=== PATIENT | male | born 1990 | race Caucasian/White ===

== ENCOUNTER 2023-11-23 08:44 | Observation (INO) | payer OTHER, SELFPAY ==
[2023-11-23] VITALS (21 sets, daily range): BP systolic 94–126; BP diastolic 58–85; PULSE 63–90; RESP 14–18; TEMP 35.8–36.9; O2SAT 95–100; BMI 31.8; BMI 83.5
--- NOTE | ~2023-11-23 | CT_ITS ---
CT of the Abdomen and Pelvis: Indication: Nausea and vomiting, history of Crohn's disease and ileostomy Technique: 2.5 mm axial scans were obtained through the abdomen and pelvis following intravenous adm inistration of 100 cc of Omnipaque 350. Dose reduction technique was used on this scan by utilizing a utomated exposure control and iterative reconstruction technique. The dose-length product (DLP) was 4 01.98 mGy-cm. Findings: Scans through the lung bases are unremarkable. The liver, spleen, pancreas, gallbladder, adrenals and kidneys are within normal limits. No evidence of aortic aneurysm. No lymphadenopathy. Status post colectomy with ileostomy present. Several minimally distended bowel loops are present in the left upper quadrant. No high-grade bowel obstruction evident. Suspected wall thickening of proxim al jejunal/left upper quadrant small bowel are present. No abscess or free air evident. Images through the pelvis were performed. Urinary bladder unremarkable. No pelvic mass seen. No ascit es. Impression: Several mildly distended left upper quadrant small bowel loops. Correlate for partial small bowel obs truction. Suspected mild wall thickening of several left upper quadrant/proximal jejunal small bowel, which could indicate Crohn's disease or other enteritis. Status post colectomy with ileostomy present. Reviewed, dictated and finalized at location . Impression: Several mildly distended left upper quadrant small bowel loops. Correlate for p artial small bowel obstruction. Suspected mild wall thickening of several left upper quadrant/proximal jejunal small bowel, which could indicate Crohn's disea se or other enteritis. Status post colectomy with ileostomy present.
--- NOTE | ~2023-11-23 | XR_ITS ---
Supine and upright views of the abdomen Clinical history: Small bowel obstruction Findings: Bowel gas pattern is nonspecific. No evidence for obstruction or free air. No abnormal mass lesion or calcification is seen. Osseous structures are intact. Impression: No significant abnormality is seen. Reviewed, dictated and finalized at [facility]. Impression: No significant abnormality is seen.
[2023-11-23 09:12] LABS: Basophils Absolute Auto 0.1 K/mm3 (0.0-0.1); Basophils Percent Auto 0.4 % (0.2-1.2); Eosinophils Absolute Auto 0.3 K/mm3 (0-0.3); Eosinophils Percent Auto 2.3 % (0-4.4); Hematocrit 49.2 % (42.0-52.0); Hemoglobin 17.1 g/dL (14.0-18.0); Immature Granulocyte Absolute 0.05 K/mm3 (0.00-0.031); Immature Granulocyte Percent A 0.4 % (0-0.5); Lymphocytes Absolute Auto 2.45 K/mm3 (0.9-3.2); Lymphocytes Percent Auto 19.5 % (18.3-44.2); Mean Corpuscular HGB Conc 34.8 g/dl (32-36); Mean Corpuscular Hemoglobin 30.6 pg (26-34); Mean Corpuscular Volume 88.2 fl (80-100); Mean Platelet Volume 8.1 fl (7.4-10.4); Monocytes Percent Auto 7.9 % (2.6-8.5); Neutrophils Absolute Auto 8.7 K/mm3 (1.3-6.7); Neutrophils Percent Auto 69.5 % (45.5-73.1); Platelet Count Result 409 k/mm3 (150-375); Red Blood Count 5.58 M/mm3 (4.6-6.20); Red Cell Distribution Width 12.5 % (11.5-14.5); White Blood Count 12.6 K/mm3 (4.5-10.0)
[2023-11-23] MEDS: SODIUM CHLORIDE 0.9% IV 1,000 ML 999 ML IV CONT (09:21)
[2023-11-23] MEDS: MORPHINE SULFATE (*CRX) 4 MG/ML INJ IV PUSH (09:21)
[2023-11-23] MEDS: ONDANSETRON INJ 4 MG/2 ML VIAL IV PUSH ×3 (09:21→22:52)
[2023-11-23 09:23] LABS: Alanine Aminotransferase 32 U/L (6-50); Albumin Level 4.9 g/dL (3.5-5.1); Alkaline Phosphatase 57 U/L (38-126); Anion Gap 10 mmol/L (4-12); Aspartate Amino Transferase 27 U/L (17-59); Blood Urea Nitrogen 18 mg/dL (9-20); Calcium 9.7 mg/dL (8.4-10.2); Carbon Dioxide 22 mmol/L (22-30); Chloride 106 mmol/L (98-107); Estimated CRCL calculation 76 ml/min; Estimated Glomerular Filt Rate > 60; Glucose 114 mg/dL (65-110); Lipase 143 U/L (23-300); Potassium 4.4 mmol/L (3.4-5.0); Sodium 138 mmol/L (137-145)
--- NOTE | 2023-11-23 09:26 | ED.NAVMDI ---
HPI - Nausea/Vomiting/Diarrhea General Chief complaint: Nausea/Vomiting/Diarrhea <CECELIA Corey Last Filed: 11/23/23 16:23> Stated complaint: decreased output from ileostomy <CECELIA Corey Last Filed: 11/23/23 16:23> Time Seen by Provider: 11/23/23 09:03 <CECELIA Corey Last Filed: 11/23/23 16:23> Source: patient <CECELIA Corey Last Filed: 11/23/23 16:23> Mode of arrival: ambulatory <CECELIA Corey Filed: 11/23/23 16:23> Limitations: no limitations <CECELIA Corey Filed: 11/23/23 16:23> History of Present Illness HPI Narrative: Patient is a 33 y/o male who presents to the ED with c/o N/V, abdominal pain. Patient has a history of ulcerative colitis and prior colectomy with end ileostomy. States over the last 36 hours he has had persistent nausea, decreased output from his ileostomy. Began vomiting last night, concerned he may have a bowel obstruction. Does have history of bowel obstruction that felt similar. Complains of lower abdominal pain, more on the right side. Denies blood in ileostomy, fevers, urinary complaints. <CECELIA Corey Last Filed: 11/23/23 16:23> Related Data Home medications: Home Medications Medication Instructions Recorded Confirmed lisdexamfetamine 20 mg capsule 20 mg PO DAILY 11/23/23 11/23/23 <CECELIA Corey Last Filed: 11/23/23 16:23> Allergies/Adverse reactions: Allergies Allergy/AdvReac Type Severity Reaction Status Date / Time erythromycin base Allergy Unknown Rash Verified 11/23/23 08:56 sulfisoxazole Allergy Unknown Rash Verified 11/23/23 08:56 <CECELIA Corey Last Filed: 11/23/23 16:23> Review of Systems Review of Systems: CONSTITUTIONAL: Denies fever, chills, or sweats. GASTROINTESTINAL: See HPI. GENITOURINARY: Denies dysuria or hematuria. <Sandy Sim PA-C - Last Filed: 11/23/23 16:23> All systems reviewed & are unremarkable except as noted in HPI and below <CECELIA Corey Last Filed: 11/23/23 16:23> PENDING SALE TO [facility] Past Medical History Medical History: Medical History Ileostomy in place Ulcerative colitis <CECELIA Corey Last Filed: 11/23/23 16:23> Surgical History Surgical History: Surgical History History of colectomy 2014 History of resection of rectum 2015 <CECELIA Corey Last Filed: 11/23/23 16:23> Family History Family History: Family History Father Familial primary pulmonary hypertension <CECELIA Corey Last Filed: 11/23/23 16:23> Social History Social History: Social History Tobacco type: smokeless tobacco Smokeless tobacco user: chewing tobacco Alcohol intake: current Substance use type: other Other substance usage details: THC edibles Do You Feel Safe in your Home?: Yes Lack of Transportation: No Lack of Food: Never True Current Housing: I Have Housing Concerned About Future Housing: No Difficulty Paying Gas/Electric Bills: No Difficulty Paying for Meds: No Currently Unemployed: No Education: Associate Degree Difficulty w/ Childcare or Family Care: No Living arrangements: alone Occupation/Education: occupation Spiritual care concerns: No <CECELIA Corey Last Filed: 11/23/23 16:23> Exam Narrative: GENERAL: Well appearing, obese with BMI of 31.8, non-toxic, in no acute distress. HEAD: Normocephalic, atraumatic. RESPIRATORY: Airway patent, respirations nonlabored. Clear to auscultation bilaterally, no rales, rhonchi, wheezing. CARDIOVASCULAR: Regular rate and rhythm without murmurs, rubs, or gallops. A
[2023-11-23 09:55] LABS: Lactic Acid Reflex 0.8 mmol/L (0.7-2.0)
--- NOTE | 2023-11-23 12:32 | PM.CNGS ---
Assessment and Plan Assessment and plan (1) Small bowel obstruction: Code(s): K56.609 - Unspecified intestinal obstruction, unspecified as to partial versus complete obstruction Status: Acute Assessment and Plan: CT evidence of a partial small bowel obstruction. This is likely related to some ingested food or roughage that has caused at least a partial small bowel obstruction. Wound/ostomy nurses consulted to irrigate his ileostomy in the ER and he has had some relief after having a fair amount of gas and particles passing after irrigation. His nausea has resolved and abdominal pain improved. He is not distended and no peritoneal signs on exam. We will hold off on NG tube placement for now, unless he begins vomiting again. Will start him on a clear liquid diet and order a KUB for tomorrow morning to re-evaluate. Could consider a water-soluble small bowel follow through if this is not resolving in the next 24 hours. Will continue to monitor with serial abdominal exams and labs. (2) History of colectomy: Code(s): Z90.49 - Acquired absence of other specified parts of digestive tract Status: Acute Assessment and Plan: Patient with a history of ulcerative colitis who had a subtotal colectomy with end ileostomy in 2013 and eventually proctectomy in 2016. (3) Ileostomy in place: Code(s): Z93.2 - Ileostomy status Status: Acute Plan I have discussed the patient's case and plan of care with Dr. Choe. History of Present Illness Consult details Consult date: 11/23/23 Reason for consult: other (Small bowel obstruction) Requesting physician: Sandy Sim, CECELIA Narrative: This is a 33-year-old man with a history of Ulcerative Colitis s/p subtotal colectomy with end ileostomy in 2013 and eventually a proctocolectomy in 2016. He presented to the ER today with complaints of abdominal pain and vomiting x 36 hours. He has a history of small bowel obstructions that have resolved with conservative management in the past. He reports when he has mild symptoms at home consistent with a small bowel obstruction, he will typically try to irrigate his ileostomy and this typically resolves his symptoms. He developed generalized cramping abdominal pain 2 days ago after eating chicken wings and rice. Since then, he has only had very little out of his ileostomy. He developed nausea and vomiting. He tried to irrigate his ileostomy yesterday morning without relief. Due to his persistent symptoms, he presented to the ER. Vital signs stable in the ER. Labs showed a white blood cell count of 12,600. CT scan of the abdomen and pelvis showed several mildly distended LUQ small bowel loops, possible partial small bowel obstruction. Also with suspected mild wall thickening of several left upper quadrant/proximal jejunal small bowel, which could indicate Crohn's disease or other enteritis. Our service was consulted and he is now seen in the ER with the wound and ostomy nurses. Review of Systems Review of Systems: All systems reviewed & are unremarkable except as noted in HPI and below PMFSH Past Medical History Medical History Ileostomy in place Ulcerative colitis Surgical History Surgical History History of colectomy 2014 History of resection of rectum 2015 Family History Family History Father Familial primary pulmonary hypertension Social History Social History Tobacco type: smokeless tobacco Smokeless tobacco user: chewing tobacco Alcohol intake: current Substance use type: other Other substance usage details: THC edibles Living arrangements: alone Occupation/Education: occupation Meds Home Medications and Allergies Allergies Allergy/AdvReac Type Severity Reaction Status Date
[2023-11-23] MEDS: metroNIDAZOLE 500 MG/ISO 100ML 500 MG/100 ML BAG 100 MG IVPB (12:58)
[2023-11-23] MEDS: HYDROmorphone HCL INJ (*CRX) 1 MG/ML SYR 0.5 MG IV PUSH ×3 (13:41→22:51)
--- NOTE | 2023-11-23 13:59 | PCWOUND ---
WOCN NOTE Received orders to irrigate ileostomy for blockage. Instilled 500 ml lukewarm water over 5 minutes. Received 400 ml return with numerous flecks of debris present in return and several bouts of gas released. Patient did not report any discomfort with process. Irrigation sleeve left in place for additional return. Wafer can be left on and small bag snapped in place when ready to switch over.
[2023-11-23] MEDS: SODIUM CHLORIDE 0.9% IV 1,000 ML 60 ML IV CONT (14:32)
--- NOTE | 2023-11-23 14:32 | ADMGEN ---
This patient, Wali Valentin, was admitted to 3 Med Surg Room 306-01. Patient/family oriented to hospital policies and general routines including ID bracelet, bed and alarms, visiting hours, pain management, procedures, bathroom and other care routines, personal items, smoking policy, room service/diet, and visiting hours. Information on how to activate the Rapid Response Team has been discussed. Patient/Family are encouraged to report perceived risks to care and to ask questions if they do not understand what they are told or what they should do.
--- NOTE | 2023-11-23 15:39 | PC.NURSE ---
Pt. informed of need for urine sample, order left from ER orders. Pt. verbalized understanding and will page nurse's station when urine specimen is provided.
[2023-11-24 06:00] VITALS: BP 95/68; PULSE 74; RESP 16; TEMP 35.8; O2SAT 97
[2023-11-24] MEDS: HYDROmorphone HCL INJ (*CRX) 1 MG/ML SYR 0.5 MG IV PUSH ×4 (06:14→21:19)
[2023-11-24] MEDS: SODIUM CHLORIDE 0.9% IV 1,000 ML 60 ML IV CONT ×2 (06:15→21:23)
[2023-11-24 06:44] LABS: Basophils Percent Auto 0.6 % (0.2-1.2); Eosinophils Absolute Auto 0.4 K/mm3 (0-0.3); Hematocrit 42.4 % (42.0-52.0); Hemoglobin 14.4 g/dL (14.0-18.0); Immature Granulocyte Absolute 0.05 K/mm3 (0.00-0.031); Immature Granulocyte Percent A 0.7 % (0-0.5); Lymphocytes Percent Auto 37.7 % (18.3-44.2); Mean Corpuscular Hemoglobin 30.6 pg (26-34); Mean Platelet Volume 8.3 fl (7.4-10.4); Monocytes Absolute Auto 0.7 K/mm3 (0.1-0.6); Monocytes Percent Auto 10.3 % (2.6-8.5); Neutrophils Absolute Auto 3.3 K/mm3 (1.3-6.7); Neutrophils Percent Auto 45.7 % (45.5-73.1); Platelet Count Result 310 k/mm3 (150-375); Red Blood Count 4.71 M/mm3 (4.6-6.20); Red Cell Distribution Width 12.4 % (11.5-14.5); White Blood Count 7.2 K/mm3 (4.5-10.0)
[2023-11-24 07:12] LABS: Anion Gap 6 mmol/L (4-12); Blood Urea Nitrogen 11 mg/dL (9-20); Calcium 8.2 mg/dL (8.4-10.2); Carbon Dioxide 24 mmol/L (22-30); Chloride 107 mmol/L (98-107); Estimated Glomerular Filt Rate > 60; Glucose 104 mg/dL (65-110); Potassium 4.1 mmol/L (3.4-5.0); Sodium 137 mmol/L (137-145)
[2023-11-24] MEDS: oxyCODONE/ACETAMINOPHEN (*CRX) 5-325 MG TABLET 1 TABLET PO (12:15)
[2023-11-24] MEDS: ENOXAPARIN 40 MG/0.4 ML SYRINGE SUB-Q (12:16)
--- NOTE | 2023-11-24 13:23 | PM.PNGS ---
Progress Note: A&P Assessment and Plan (1) Partial small bowel obstruction: Code(s): K56.600 - Partial intestinal obstruction, unspecified as to cause Status: Acute Assessment and Plan: Improved radiographically as well as by clinical assessment. Will advance to full liquids and, if tolerates, soft diet later today. If not relieved by tomorrow, will get water-soluble small bowel follow-through. (2) Ileostomy in place: Code(s): Z93.2 - Ileostomy status Status: Chronic Subjective Subjective Date/Time Seen: 11/24/23 09:43 Patient reports: feels better, pain is less, tolerating liquids well and nausea Interval history: Patient reports that he had corn and peanuts come from his ileostomy earlier this morning. He still has some bloating and mild nausea. He has tolerated liquids without difficulty. His pain is better. He has had no vomiting. Overall improved but not back to normal as yet. Review of Systems Review of Systems: All systems reviewed & are unremarkable except as noted in HPI and below (HPI) Exam Const: General: comfortable, no acute distress and average body habitus Orientation/consciousness: patient oriented x3 and No confusion GI: Inspection: non-distended, scar, no visible herniation and other (Ileostomy pink with liquid green output) GI Palp: Yes Soft to palpation, No Tenderness to palpation present (GI), No Guarding due to palpation present (GI), No Hernia present, No Palpable mass present and No Rebound tenderness present Neuro: General: patient oriented x3 and no focal motor deficits Extrem: General: no calf tenderness and no edema Psych: Affect: normal affect Insight: Good insight present (Psych) Judgement: Good judgement present (Psych) Objective Data Vital Signs Vital Signs: Vital Signs - 24 hr 11/23/23 13:24 11/23/23 13:30 11/23/23 13:49 Temperature Pulse Rate Respiratory Rate Blood Pressure Pulse Oximetry 97 97 95 Oxygen Delivery 11/23/23 14:04 11/23/23 14:40 11/23/23 15:05 Temperature 36.4 C Pulse Rate 63 90 Respiratory Rate 16 14 Blood Pressure 102/61 104/75 Pulse Oximetry 96 97 Oxygen Delivery Room Air 11/23/23 20:00 11/23/23 20:40 11/24/23 06:00 Temperature 35.8 C L 35.8 C L Pulse Rate 73 74 Respiratory Rate 18 16 Blood Pressure 111/73 95/68 L Pulse Oximetry 98 97 Oxygen Delivery Room Air 11/24/23 08:00 Temperature Pulse Rate Respiratory Rate Blood Pressure Pulse Oximetry Oxygen Delivery Room Air Intake/Output Intake/Output: Intake & Output 11/21/23 11/22/23 11/23/23 11/24/23 23:59 23:59 23:59 23:59 Intake Total 1600 1253 Output Total 300 250 Balance 1300 1003 Meds/Results Medications: Active Medications Generic Name Dose Route Start Last Admin Trade Name Freq PRN Reason Stop Dose Admin Acetaminophen 500 mg 11/24/23 12:04 Acetaminophen 500 Mg Tablet PO Q6H PRN Pain Rated 1-3 Hydromorphone HCl 0.5 mg 11/23/23 13:34 11/24/23 08:52 Hydromorphone Hcl Inj (*Crx) 1 Mg/Ml Syr IV PUSH 0.5 mg Q2H PRN Administration Pain Rated 7-10 Hydromorphone HCl 0.5 mg 11/24/23 12:04 Hydromorphone Hcl Inj (*Crx) 1 Mg/Ml Syr IV PUSH Q2H PRN Breakthrough Pain Rated 4-6 or NPO Sodium Chloride 1,000 mls @ 60 mls/hr 11/23/23 14:05 11/24/23 06:15 Normal Saline Iv IV CONT 60 mls/hr .[id number] ELDER Administration Ibuprofen 800 mg in 200 mls @ 400 mls/hr 11/24/23 12:04 Caldolor 800 Mg/200 Ml IVPB Q6H PRN Breakthrough Pain Rated 1-3 or NPO Miscellaneous Information 1 each 11/24/23 00:01 Lisdexamfetamine Nonformulary. Can Patient Use From Home? XX 12/24/23 00:00 CLARIFY ELDER Naloxone HCl 0.1 mg 11/24/23 12:04 Naloxone Hcl 0.4 Mg/Ml Vial IV PUSH Q2M PRN Opiate Reversal Non-Formulary Medication 20 mg 11/25/23 09:00 Lisdexamfetamine PO 12/25/23 08:59 DAILY ELDER Ondansetron HCl 4
[2023-11-24 13:55] VITALS: BP 112/68; PULSE 73; RESP 18; TEMP 36.7; O2SAT 98
[2023-11-24 21:00] VITALS: BP 100/64; PULSE 72; RESP 16; TEMP 36.6; O2SAT 99
[2023-11-25] MEDS: HYDROmorphone HCL INJ (*CRX) 1 MG/ML SYR 0.5 MG IV PUSH ×3 (00:29→06:27)
[2023-11-25 05:30] VITALS: BP 90/51; PULSE 62; RESP 20; TEMP 36.6; O2SAT 97
[2023-11-25 06:01] LABS: Hematocrit 44.2 % (42.0-52.0); Hemoglobin 15.1 g/dL (14.0-18.0); Mean Corpuscular HGB Conc 34.2 g/dl (32-36); Mean Corpuscular Hemoglobin 30.7 pg (26-34); Mean Corpuscular Volume 89.8 fl (80-100); Mean Platelet Volume 8.3 fl (7.4-10.4); Platelet Count Result 351 k/mm3 (150-375); Red Blood Count 4.92 M/mm3 (4.6-6.20); Red Cell Distribution Width 12.4 % (11.5-14.5); White Blood Count 7.5 K/mm3 (4.5-10.0)
[2023-11-25 06:06] LABS: Anion Gap 4 mmol/L (4-12); Blood Urea Nitrogen 10 mg/dL (9-20); Calcium 8.3 mg/dL (8.4-10.2); Carbon Dioxide 26 mmol/L (22-30); Chloride 107 mmol/L (98-107); Estimated Glomerular Filt Rate > 60; Glucose 103 mg/dL (65-110); Sodium 137 mmol/L (137-145)
[2023-11-25] MEDS: SODIUM CHLORIDE 0.9% IV 1,000 ML 60 ML IV CONT (06:30)
[2023-11-25] MEDS: oxyCODONE/ACETAMINOPHEN (*CRX) 5-325 MG TABLET 1 TABLET PO (09:51)
--- NOTE | 2023-11-25 10:37 | PM.DS ---
DS: Admitting Diagnosis Discharge Date 11/25/2023 Admitting Diagnosis Small-bowel obstruction History of colectomy with ileostomy DS: Discharge Diagnosis Discharge Diagnosis (1) Partial small bowel obstruction: Code(s): K56.600 - Partial intestinal obstruction, unspecified as to cause Status: Acute (2) Ileostomy in place: Code(s): Z93.2 - Ileostomy status Status: Chronic (3) History of colectomy: Code(s): Z90.49 - Acquired absence of other specified parts of digestive tract Status: Acute DS: Summary Hospital Course Reason for hospitalization: This is a 33-year-old man with a history of ulcerative colitis status post subtotal colectomy with end ileostomy in 2013 and eventually had a proctectomy in 2016. He presented to the ER with complaints of abdominal pain and vomiting with a history of small-bowel obstructions in the past. Workup in the ER showed mild leukocytosis and CT evidence of at least a partial small-bowel obstruction. He was admitted in this setting for further management and surgical evaluation. Hospital Course: We consulted the wound and ostomy nurses to irrigate his ileostomy on admission. He did have some flakes and enteric content that returned with irrigation. His symptoms were improving and he was no longer having any vomiting, therefore NG tube was deferred. He was started on a clear liquid diet and monitored overnight. KUB the following day showed a normal bowel gas pattern. Symptoms had improved and his diet was advanced to a regular diet. Today, he is no longer having any abdominal pain and reports passing 2 large quantities of corn from his ileostomy and emptying this out of his back this morning. Since then, he has no longer had any abdominal pain, just some soreness at his stoma. He reports having some intermittent nausea, which is chronic for him. No vomiting. No bloating. No other complaints at this time. He is feeling much better. Patient is stable for discharge at this time. Status at Discharge Functional status at discharge: independent ambulation Overall status at discharge: patient is back to baseline Time Spent with Patient Time attestation: Total time spent providing and/or coordinating discharge services: Time spent: Less than 30 minutes Exam Const: General: comfortable and no acute distress Orientation/consciousness: patient oriented x3 GI: Inspection: non-distended and other (Ileostomy functioning well with moderate output, stoma appears healthy) GI Palp: Yes Soft to palpation, No Tenderness to palpation present (GI), No Guarding due to palpation present (GI) and No Rebound tenderness present Auscultation: normal bowel sounds DS: Data Data Completed and Pending Labs on day of discharge: Labs from last 24 hours 11/25/23 05:09 WBC 7.5 RBC 4.92 Hgb 15.1 Hct 44.2 MCV 89.8 MCH 30.7 MCHC 34.2 RDW 12.4 Plt Count 351 MPV 8.3 Sodium 137 Potassium 4.0 Chloride 107 Carbon Dioxide 26 Anion Gap 4 BUN 10 Creatinine 1.00 Estim Creat Clear Calc Not Reportable Estimated GFR > 60 Glucose 103 Calcium 8.3 L Preliminary micro results at discharge 11/23/23 12:25 Blood Culture - Preliminary Blood 11/23/23 12:25 Blood Culture - Preliminary Blood Imaging Radiologist's impression: ITS Impressions Abdomen/Pelvis CT 11/23/23 10:36 Impression: Several mildly distended left upper quadrant small bowel loops. Correlate for partial small bowel obstruction. Suspected mild wall thickening of several left upper quadrant/proximal jejunal small bowel, which could indicate Crohn's disease or other enteritis. Status post colectomy with ileostomy present. Abdomen X-Ray 11/24/23 05:37 Impression: No significant abnormality is seen. Discharge Plan Discharge Attending physician on discharge: Santos Choe Consulting providers: Sandy Sim Discharging Clinician: Gabriele
== END 2023-11-25 11:55 | disposition home or self-care (01) ==
LOC: ANHED 09:50 → ANH3MEDSUR 14:01
PROVIDERS: Emergency Medicine; Nurse Practitioner Family; Admitting Provider Surgery; Emergency Provider Physician Assistant; PCP Physician Assistant; Visit Provider Surgery
DX: K56.600 Partial intestinal obstruction, unspecified as to cause (principal); K51.919 Ulcerative colitis, unspecified with unspecified complications; Z93.2 Ileostomy status; Z90.49 Acquired absence of other specified parts of digestive tract; F17.220 Nicotine dependence, chewing tobacco, uncomplicated; F12.90 Cannabis use, unspecified, uncomplicated
CPT/HCPCS: 36415; 74018; 74177; 80048; 80053; 83605; 83690; 85025; 85027; 87040; 96361; 96365; 96375; 99285; A9270; G0378; J0696; J1170; J1650; J1836; J2270; J2405; J7030; Q9967

== ENCOUNTER 2024-02-09 08:30 | Emergency (ER) | payer OTHER, SELFPAY ==
--- NOTE | 2024-02-09 08:48 | ED.UPPEXIN ---
HPI - Extremity Injury (Upper) General Chief Complaint: Upper Respiratory Infection Stated Complaint: pos COVID today/ confirmation needed for work Time Seen by Provider: 02/09/24 08:49 Source: patient, RN notes reviewed and old records reviewed Mode of arrival: ambulatory Limitations: no limitations History of Present Illness HPI narrative: 33-year-old male presents to the [facility] with concerns for COVID. Needs to confirmation for work. Patient reports body aches, rigors, congestion runny nose yesterday Patient reports testing positive at home for COVID-19 and, reports that his just needs a positive test from medical facility Onset (ago): day(s) (1) Treatments prior to arrival: other (cold medications) Related Data Home Medications Medication Instructions Recorded Confirmed lisdexamfetamine 20 mg capsule 20 mg PO DAILY 11/23/23 02/09/24 Allergies Allergy/AdvReac Type Severity Reaction Status Date / Time erythromycin base Allergy Intermediate Rash Verified 02/09/24 08:45 sulfisoxazole Allergy Intermediate Rash Verified 02/09/24 08:45 Review of Systems Review of Systems: All systems reviewed & are unremarkable except as noted in HPI and below Constitutional: Constitutional: Reports as per HPI Eyes: Eyes: Reports no additional eye complaints ENT: Reports as per HPI Cardiovascular: Cardiovascular: Reports no additional cardiovascular complaints, Denies chest pain and Denies dyspnea Respiratory: Respiratory: Reports no additional respiratory complaints, Denies chest congestion, Denies cough and Denies dyspnea Gastrointestinal: Gastrointestinal: Reports no additional gastrointestinal complaints, Denies abdominal pain, Denies nausea and Denies vomiting Musculoskeletal: Musculoskeletal: Reports no additional musculoskeletal complaints Integumentary/Breasts: Skin/Breast: Reports system reviewed and no additional complaints, except as docu Neurologic: Reports system reviewed and no additional complaints, except as documented Psychiatric: Psychiatric: Reports no additional psychiatric complaints Allergic/Immunologic: Allergic/Immunologic: Reports no additional allergic/immunologic complaints [facility] Past Medical History Medical History Ileostomy in place Ulcerative colitis Surgical History Surgical History History of colectomy 2014 History of resection of rectum 2015 Family History Family History Father Familial primary pulmonary hypertension Social History Social History Tobacco type: smokeless tobacco Smokeless tobacco user: chewing tobacco Alcohol intake: current Substance use type: other Other substance usage details: THC edibles Do You Feel Safe in your Home?: Yes Lack of Transportation: No Lack of Food: Never True Current Housing: I Have Housing Concerned About Future Housing: No Difficulty Paying Gas/Electric Bills: No Difficulty Paying for Meds: No Currently Unemployed: No Education: Associate Degree Difficulty w/ Childcare or Family Care: No Living arrangements: alone Occupation/Education: occupation Spiritual care concerns: No Comments At the time of my signature, I reviewed and agree with the nursing past medical, surgical, social, and family history. There is no relevant family history pertinent to the patient complaint. Exam Const: General: cooperative, healthy appearing, comfortable, no acute distress, well developed, alert and well nourished Nutritional Appearance: well nourished Orientation/consciousness: patient oriented x3 Limitations: no limitations HENMT: Head: normal to inspection Ears: hearing grossly normal bilaterally, external ears normal, TM's normal bilaterally, EAC's normal, mastoids normal and no periauricular jane
[2024-02-09 08:51] VITALS: BP 127/78; PULSE 105; RESP 16; TEMP 36.3; O2SAT 97
== END 2024-02-09 09:12 | disposition home or self-care (01) ==
PROVIDERS: Emergency Provider Nurse Practitioner; PCP Physician Assistant
DX: U07.1 COVID-19 (principal); F17.220 Nicotine dependence, chewing tobacco, uncomplicated
CPT/HCPCS: 87426; 99212; G0463

== ENCOUNTER 2024-03-15 08:21 | Emergency (ER) | payer SELFPAY ==
--- NOTE | ~2024-03-15 | CT_ITS ---
CT abdomen pelvis w con Ordering provider: Wilfredo Ellis MD History: 33 years Male with . Decreased ostomy output, abd pain/n/V. eval SBO . Comparison: November 23, 2023 Technique: CT abdomen and pelvis with IV and without oral contrast. Automated exposure control and it erative reconstruction technique were employed. The dose-length product was 785.41 mGy-cm. 100 mL Omn ipaque 350 was given IV. Findings: VISUALIZED LOWER CHEST: Normal. UPPER ABDOMINAL ORGANS: Liver: Normal. Gallbladder: Small density in the fundus of the gallbladder which may be a stone. Spleen: Normal. Stomach/duodenum: Normal. Pancreas: Normal. Adrenals: Normal. Kidneys: Normal. PELVIC ORGANS: The bladder is underfilled with slight thickening of the wall. BOWEL AND MESENTERY: Colon: Right anterior abdominal wall ostomy is noted. Small Bowel: No obstruction. Slight thickening of the wall in the area of the jejunum is seen which m ay indicate enteritis. Peritoneum/mesentery: No free air. Trace of free fluid is seen in the pelvis. No mesenteric lymphaden opathy. Small mesenteric lymph nodes are noted. RETROPERITONEUM: Normal aorta. No retroperitoneal lymphadenopathy. MUSCULOSKELETAL: Superficial soft tissues: The superficial soft tissues are normal. Bones: Normal spine. Spondylolysis at the level of L5-S1. IMPRESSION: 1. No evidence of obstruction seen. Slight thickening of the wall in the jejunum which may indicate enteritis. Active Crohn's disease cannot be excluded. Follow-up advised. 2. Possible stone in the fundus of the gallbladder. Reviewed, dictated and finalized at location A. IMPRESSION: 1. No evidence of obstruction seen. Slight thickening of the wall in the jejun um which may indicate enteritis. Active Crohn's disease cannot be excluded. Fol low-up advised. 2. Possible stone in the fundus of the gallbladder.
[2024-03-15 08:26] VITALS: BP 134/89; PULSE 83; RESP 18; TEMP 36.6; O2SAT 98
[2024-03-15 08:44] LABS: Basophils Absolute Auto 0.1 K/mm3 (0.0-0.1); Basophils Percent Auto 0.5 % (0.2-1.2); Eosinophils Absolute Auto 0.3 K/mm3 (0-0.3); Eosinophils Percent Auto 1.5 % (0-4.4); Hematocrit 45.6 % (42.0-52.0); Hemoglobin 16.2 g/dL (14.0-18.0); Immature Granulocyte Absolute 0.19 K/mm3 (0.00-0.031); Lymphocytes Absolute Auto 2.49 K/mm3 (0.9-3.2); Lymphocytes Percent Auto 13.7 % (18.3-44.2); Mean Corpuscular HGB Conc 35.5 g/dl (32-36); Mean Corpuscular Hemoglobin 31.1 pg (26-34); Mean Corpuscular Volume 87.5 fl (80-100); Mean Platelet Volume 8.4 fl (7.4-10.4); Monocytes Absolute Auto 1.2 K/mm3 (0.1-0.6); Monocytes Percent Auto 6.4 % (2.6-8.5); Neutrophils Percent Auto 76.9 % (45.5-73.1); Platelet Count Result 352 k/mm3 (150-375); Red Blood Count 5.21 M/mm3 (4.6-6.20); Red Cell Distribution Width 12.6 % (11.5-14.5); White Blood Count 18.2 K/mm3 (4.5-10.0)
[2024-03-15 08:57] LABS: Alanine Aminotransferase 62 U/L (6-50); Albumin Level 4.4 g/dL (3.5-5.1); Alkaline Phosphatase 40 U/L (38-126); Anion Gap 5 mmol/L (4-12); Aspartate Amino Transferase 45 U/L (17-59); Bilirubin,Total 0.5 mg/dL (0.2-1.3); Blood Urea Nitrogen 11 mg/dL (9-20); Calcium 9.1 mg/dL (8.4-10.2); Carbon Dioxide 24 mmol/L (22-30); Chloride 97 mmol/L (98-107); Estimated CRCL calculation 93 ml/min; Estimated Glomerular Filt Rate > 60; Glucose 111 mg/dL (65-110); Lipase 485 U/L (23-300); Potassium 4.1 mmol/L (3.4-5.0); Sodium 126 mmol/L (137-145)
[2024-03-15] MEDS: ONDANSETRON INJ 4 MG/2 ML VIAL 8 MG IV PUSH (09:28)
[2024-03-15] MEDS: KETOROLAC 15 MG/ML VIAL (*BKC) IV PUSH (09:29)
[2024-03-15] MEDS: HYDROmorphone HCL INJ (*CRX) 1 MG/ML SYR IV PUSH (09:32)
--- NOTE | 2024-03-15 10:11 | ED.GENADULT ---
HPI - General Adult General Chief complaint: Nausea/Vomiting/Diarrhea Stated complaint: n/v Time Seen by Provider: 03/15/24 08:41 History of Present Illness HPI narrative: This is a 33-year-old male with a ileostomy secondary to colectomy due to precancerous polyps. Patient developed severe midline abdominal pain was sharp and stabbing. He has had decreased output from his ileostomy. He has had nausea and vomiting. He denies fevers chills chest pain or difficulty breathing. Related Data Home Medications Medication Instructions Recorded Confirmed lisdexamfetamine 20 mg capsule 20 mg PO DAILY 11/23/23 02/09/24 Allergies Allergy/AdvReac Type Severity Reaction Status Date / Time erythromycin base Allergy Intermediate Rash Verified 02/09/24 08:45 sulfisoxazole Allergy Intermediate Rash Verified 02/09/24 08:45 [facility]LY [facility] Past Medical History Medical History Ileostomy in place Ulcerative colitis Surgical History Surgical History History of colectomy 2014 History of resection of rectum 2016 Family History Family History Father Familial primary pulmonary hypertension Social History Social History Tobacco type: smokeless tobacco Smokeless tobacco user: chewing tobacco Alcohol intake: current Substance use type: other Other substance usage details: THC edibles Do You Feel Safe in your Home?: Yes Lack of Transportation: No Lack of Food: Never True Current Housing: I Have Housing Concerned About Future Housing: No Difficulty Paying Gas/Electric Bills: No Difficulty Paying for Meds: No Currently Unemployed: No Education: Associate Degree Difficulty w/ Childcare or Family Care: No Living arrangements: alone Occupation/Education: occupation Spiritual care concerns: No Exam Narrative: APPEARANCE: No apparent distress. Patient appears uncomfortable Head: atraumatic. EYES: EOMI, NOSE: Atraumatic NECK: Trachea midline RESPIRATORY: No increased rate of breathing clear to auscultation CARDIOVASCULAR: RRR, ABDOMINAL: Diffuse tenderness to palpation soft, ileostomy in place with minimal output MUSCULOSKELETAl: No obvious deformities NEURO: Alert. Moving 4/4 extremities SKIN:: Warm, dry. Normal color PSYCHIATRIC: Normal affect Course Vital Signs Vital signs: Vital Signs Temperature 97.8 F 03/15/24 08:26 Pulse Rate 83 03/15/24 08:26 Respiratory Rate 18 03/15/24 08:26 Blood Pressure 134/89 03/15/24 08:26 Pulse Oximetry 98 03/15/24 08:26 Oxygen Delivery Room Air 03/15/24 08:26 Temperature 97.8 F 03/15/24 08:26 Pulse Rate 83 03/15/24 08:26 Respiratory Rate 18 03/15/24 08:26 Blood Pressure 134/89 03/15/24 08:26 Pulse Oximetry 98 03/15/24 08:26 Oxygen Delivery Room Air 03/15/24 08:26 Medical Decision Making MDM Narrative Medical decision making narrative: -Course: 33-year-old male presenting with abdominal pain decreased ileostomy output. CT did not show signs of obstruction although there is some evidence of enteritis. Patient improved with pain medication fluids. On re-evaluation patient's farm comfortable. He has started to have normal output from his ileostomy. No blood. Discussed admission versus discharge the patient is comfortable being discharged. Patient did request another round of pain medication antiemetics discharge. He has medication for abdominal discomfort at home. Patient will be discharged with return precautions. -DDX includes but is not limited to: Small-bowel obstruction, neoplasm, gastroenteritis, drug-seeking -Co-morbidities complicating care: Ileostomy Crohn's -Social determinants of health: Works at [employer], denies drugs or alcohol -Independent interpretation of studie
[2024-03-15] MEDS: ONDANSETRON INJ 4 MG/2 ML VIAL IV PUSH ×2 (10:18)
[2024-03-15] MEDS: HYDROmorphone HCL INJ (*CRX) 1 MG/ML SYR 0.5 MG IV PUSH (10:18)
[2024-03-15 10:24] VITALS: BP 115/61; PULSE 66; RESP 18; O2SAT 97
[2024-03-15 11:11] LABS: Add Urine Microscopic? YES; Appearance Urine Clear (Clear); Bacteria Urine None Seen /hpf; Bilirubin Urine Negative (Negative); Blood Urine Negative (Negative); Color Urine Yellow (Yellow); Glucose Urine UA Negative (Negative); Ketones Urine Negative (Negative); Leukocyte Esterase Ur Negative LEU/UL (Negative); Nitrate Urine Negative (Negative); Non Pathogenic Casts 0-2; Protein Urine Trace mg/dL (Negative); RBC Urine 0-2 /hpf (0-2); Specific Grav Ur > 1.045 (1.001-1.035); Squamous Epithelial Cell Urine None Seen /hpf (Few); Urobilinogen Urine 0.2 mg/dL (<2.0); WBC Urine 0-5 /hpf (0-3); pH Urine 5.5 (5.0-9.0)
== END 2024-03-15 10:58 | disposition home or self-care (01) ==
PROVIDERS: Emergency Provider Emergency Medicine; PCP Physician Assistant
DX: K52.9 Noninfective gastroenteritis and colitis, unspecified (principal); F17.220 Nicotine dependence, chewing tobacco, uncomplicated; Z93.2 Ileostomy status
CPT/HCPCS: 36415; 74177; 80053; 81001; 83690; 85025; 96374; 96375; 96376; 99284; J1170; J1885; J2405; Q9967

== ENCOUNTER 2024-10-25 08:29 | Inpatient (IN) | payer OTHER, SELFPAY ==
[2024-10-25] VITALS (23 sets, daily range): BP systolic 98–123; BP diastolic 59–89; PULSE 51–88; RESP 16–18; TEMP 36.3–36.6; O2SAT 96–100; BMI 33.0
--- NOTE | ~2024-10-25 | CT_ITS ---
CT of the Abdomen and Pelvis: Indication: Abdominal pain Technique: 2.5 mm axial scans were obtained through the abdomen and pelvis following intravenous adm inistration of 100 cc of Omnipaque 350. Dose reduction technique was used on this scan by utilizing a utomated exposure control and iterative reconstruction technique. The dose-length product (DLP) was 6 42.01 mGy-cm. COMPARISON: 03/15/2024 Findings: Scans through the lung bases are unremarkable. The liver, spleen, pancreas, gallbladder, adrenals and kidneys are within normal limits. No evidence of aortic aneurysm. No lymphadenopathy. Status post total colectomy with right lower quadrant ileostomy present. There is extensive wall thic kening of the mid to distal ileum. No bowel obstruction evident. No abscess or free air. Images through the pelvis were performed. Urinary bladder unremarkable. No pelvic mass seen. Bilateral L5 pars interarticularis defects are present. Impression: Extensive wall thickening of the mid to distal ileum, compatible with infectious/inflammatory enterit is. Status post colectomy with right lower quadrant ileostomy. Reviewed, dictated and finalized at [facility]. Impression: Extensive wall thickening of the mid to distal ileum, compatible with infectiou s/inflammatory enteritis. Status post colectomy with right lower quadrant ileostomy.
--- OUTSIDE RECORDS SUMMARY | 2024-10-25 08:42 | XMS_ITS | Clinical Summary ---
Author Organization [facility] [employer] Address [address] [place] [address] Care Team Providers Care Roll Forming Machine Operator Name Role Phone Unavailable Primary Care Provider Unavailabl e Source Comments [facility],non-owned Affiliates and Associated Physician Practices is amultiple site organization consisting of ambulatory clinics and hospital sitesin [place], [place], [place] and [place]. This disclosure is being madepursuant to the Care Everywhere program and may not contain all information available regarding this patient. Last updated 18.[facility] [employer] Allergies No known active allergies Medications * Be aware that medications may not be up to date on this document. Alwaysverify current medications with the patient. methylphenidate CR (CONCERTA) 36 MG tablet Take 2 Tabs by mouth daily with breakfast. 60 0 07/02/2009 Active Immunizations Immunization Administration Dates Next Due DPT 10/02/1995, 4,02/21/1993,03/31/1991,01/31/19 91 HEP A PEDS 2 DOSE 01/08/2006,12/16/2004 HEP B VACCINE, PED/ADOL 10/31/2002,05/26/2000, HIB BOOSTER 01/04/1992,03/31/1991,01/31/1991 INFLUENZA VACCINE 05/19/2003, 2,03/29/2001,06/02/2000,04/15/19 99,04/27/1998,05/30/1997,04/20/1996 MENINGOCOCAL MENINGITIS 12/16/2004 MMR 10/02/1995,01/04/1992 POLIO OPV 10/02/1995,02/21/1993,03/31/1991 ,01/31/1991 PPD 12/16/2004,07/13/2001 TD VACCINE 12/16/2004 TDAP (7yrs+) 10/10/2008 Social History Tobacco Use Types Packs/Day Years Used Date Smoking Tobacco: Never Assessed Sex and Gender Information Value Date Recorded Sex Assigned at Not on file 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 Gender Identity Not on file Sexual Orientation Not on file Plan of Treatment Health Maintenance Due Date Last Done Comments HIV SCREENING 2005 HEPATITIS C SCREENING 09/24/2008 DTAP/TDAP/TD VACCINES (8 - Td or Tdap) 10/10/2018 10/10/2008, 12/16/2004, 10/02/1995, Additional history exists COVID-19 VACCINE ( season) 2024 DEPRESSION SCREENING 06/22/2024 INFLUENZA VACCINE (Season Ended) 2025 05/19/2003, 03/28/2002, 03/29/2001, Additional history exists ZOSTER VACCINE (1 of 2) 2040 HIB VACCINE Completed 01/04/1992, 03/22, 01/31/1991 HEPATITIS B VACCINE Completed 10/31/2002, 05/26/2000, 04/28/2000 MENINGOCOCCAL GROUPS A/C/Y/W VACCINE Aged Out 12/16/2004 No longer eligible based on patient's age to complete this topic HPV VACCINE Aged Out No longer eligi ble based on patient's age to complete this topic MENINGOCOCCAL (Group B) VACCINE SHARED DECISION-MAKING Aged Out No longer eligible based on patient's age to complete this topic PNEUMOCOCCAL VACCINE Aged Out No long er eligible based on patient's age to complete this topic
[2024-10-25 08:59] LABS: Basophils Absolute Auto 0.1 K/mm3 (0.0-0.1); Basophils Percent Auto 0.4 % (0.2-1.2); Eosinophils Absolute Auto 0.2 K/mm3 (0-0.3); Eosinophils Percent Auto 1.5 % (0-4.4); Hematocrit 46.6 % (42.0-52.0); Hemoglobin 16.6 g/dL (14.0-18.0); Immature Granulocyte Absolute 0.07 K/mm3 (0.00-0.031); Immature Granulocyte Percent A 0.5 % (0-0.5); Lymphocytes Percent Auto 22.5 % (18.3-44.2); Mean Corpuscular HGB Conc 35.6 g/dl (32-36); Mean Corpuscular Hemoglobin 30.8 pg (26-34); Mean Corpuscular Volume 86.5 fl (80-100); Mean Platelet Volume 8.3 fl (7.4-10.4); Monocytes Absolute Auto 1.1 K/mm3 (0.1-0.6); Monocytes Percent Auto 7.7 % (2.6-8.5); Neutrophils Absolute Auto 9.3 K/mm3 (1.3-6.7); Neutrophils Percent Auto 67.4 % (45.5-73.1); Platelet Count Result 397 k/mm3 (150-375); Red Blood Count 5.39 M/mm3 (4.6-6.20); Red Cell Distribution Width 12.4 % (11.5-14.5); White Blood Count 13.8 K/mm3 (4.5-10.0)
[2024-10-25 09:09] LABS: Alanine Aminotransferase 136 U/L (6-50); Albumin Level 4.8 g/dL (3.5-5.1); Alkaline Phosphatase 49 U/L (38-126); Anion Gap 12 mmol/L (4-12); Aspartate Amino Transferase 64 U/L (17-59); Bilirubin,Total 0.8 mg/dL (0.2-1.3); Blood Urea Nitrogen 9 mg/dL (9-20); Calcium 9.1 mg/dL (8.4-10.2); Carbon Dioxide 22 mmol/L (22-30); Chloride 104 mmol/L (98-107); Estimated CRCL calculation 85 ml/min; Estimated Glomerular Filt Rate > 60; Glucose 112 mg/dL (65-110); Lipase 967 U/L (23-300); Potassium 3.9 mmol/L (3.4-5.0); Sodium 138 mmol/L (137-145)
[2024-10-25 09:21] LABS: Add Urine Microscopic? YES; Appearance Urine Clear (Clear); Bacteria Urine None Seen /hpf; Bilirubin Urine 1+ (Negative); Blood Urine Negative (Negative); Color Urine Dark Yellow (Yellow); Glucose Urine UA Negative (Negative); Ketones Urine Trace mg/dL (Negative); Leukocyte Esterase Ur Negative LEU/UL (Negative); Mucus Urine Present /lpf; Need Manual Microscopic Reviewed; Nitrate Urine Negative (Negative); Protein Urine 1+ mg/dL (Negative); RBC Urine 0-2 /hpf (0-2); Specific Grav Ur 1.032 (1.001-1.035); Squamous Epithelial Cell Urine None Seen /hpf (Few); WBC Urine 0-5 /hpf (0-3)
--- NOTE | 2024-10-25 09:55 | PC.NURSE ---
Pt taken to CT
--- NOTE | 2024-10-25 10:04 | ED.GENADULT ---
HPI - General Adult General Chief complaint: Abdominal Pain Stated complaint: pain at ostomy site Time Seen by Provider: 10/25/24 09:10 History of Present Illness HPI narrative: Wali Valentin is a 34-year-old male with past medical history ulcerative colitis currently has a ileostomy. He states that 3 days ago he started to have symptoms of a bowel obstruction with pain and some nausea vomiting with eating 2 days ago he went to [facility] ER and had imaging done and was normal and was discharged home. He states since he has been home the pain has increased and he last was able to eat at 11:30 a.m. yesterday. He states still having some nausea and increased pain pressure around the ostomy site. He states that he is having output into his ileostomy but it is more liquid than normal. Denies any fevers or chills Related Data Home Medications Medication Instructions Recorded Confirmed Last Taken Type No Home Medications 10/25/24 10/25/24 Unknown History Allergies Allergy/AdvReac Type Severity Reaction Status Date / Time erythromycin base Allergy Intermediate Rash Verified 10/25/24 08:39 morphine Allergy Intermediate Difficulty Verified 10/25/24 08:39 Breathing sulfisoxazole Allergy Intermediate Rash Verified 10/25/24 08:39 Review of Systems Review of Systems: All systems reviewed & are unremarkable except as noted in HPI and below PMFSH Past Medical History Medical History Partial small bowel obstruction COVID-19 Abdominal muscle strain Depression Sore throat Personal history of colonic polyps Genital herpes simplex type 1 infection Anxiety Ulcerative colitis Ileostomy in place Surgical History Surgical History History of resection of rectum 2016 History of colectomy 2014 Family History Family History (Updated 10/25/24 @ 16:08 by Angie Falcon RN) Father Familial primary pulmonary hypertension Lung transplant recipient Social History Social History Smoking status: Never smoker Tobacco type: smokeless tobacco Smokeless tobacco user: chewing tobacco Alcohol intake: never Substance use type: marijuana Other substance usage details: THC edibles Do You Feel Safe in your Home?: Yes Lack of Transportation: No Lack of Food: Never True Current Housing: I Have Housing Concerned About Future Housing: No Difficulty Paying Gas/Electric Bills: No Difficulty Paying for Meds: No Currently Unemployed: No Education: Associate Degree Difficulty w/ Childcare or Family Care: No Living arrangements: alone Occupation/Education: occupation Spiritual care concerns: No Exam Narrative: GENERAL: in no acute distress. HEAD: Normocephalic, atraumatic. EYES: PERRLA and EOMI. ENT: Nares clear, no rhinorrhea or epistaxis. Mucous membranes moist. Oropharynx without tonsillar hypertrophy exudate or other lesions. NECK: Supple. No adenopathy or masses. No carotid bruits or JVD CHEST: Clear to auscultation. No respiratory distress. No wheezes rales or rhonchi HEART: Regular rate and rhythm. No murmur heard. Normal peripheral pulses. ABDOMEN: Soft, normal active bowel sounds, maybe mildly distended ileostomy with brown liquid stool in the bag ostomy appears pink and healthy EXTREMITIES: Normal range of motion. No edema. SKIN: Warm, dry, no rash. NEURO: No focal deficits. Alert and oriented x3. PSYCH: Normal mood and affect. Course Vital Signs Vital signs: Vital Signs Temperature 36.6 C 10/25/24 08:37 Pulse Rate 88 10/25/24 08:37 Respiratory Rate 16 10/25/24 08:37 Blood Pressure 114/86 10/25/24 08:37 Pulse Oximetry 99 10/25/24 08:37 Temperature 36.3 C L 10/25/24 16:28 Pulse Rate 57 L 10/25/24 16:28 Respiratory Rate 18 10/25/24 16:28 Blood Pressure 102/65 10/25/24 16:28 Pulse Oximetry 98 10/25/24 16:28 Oxygen Delivery Room Air 10/25/24 16:30 Medical Decision Making [facility] Narrative Medical decision making narrative: 34-year-old with ulcerative colitis history with a total rectal anal removal currently has an ileostomy that he has had for over 10 years. He states he started to have some waxing and waning symptoms starting about 3 days ago with some abdominal pain nausea vomiting felt similar to previous bowel obstructions he has had in the past however he had CT scans done 2 days ago which were negative for any acute findings was discharged home and he has had continued worsening pain. He lacks a history of 05 21 still having increased pain pressure on the ostomy. Concern for obstruction, hernia, colitis Plan to check labs and CT scan while treating his pain and nausea and fluids CBC-positive leukocytosis 13.8, hemodynamically stable CMP-glucose 112, AST 64, ALT 136 Lipase-967 UA-+protein, ketone trace Ct ab/pelv -Extensive wall thickening of the mid to distal ileum, compatible with infectious/inflammatory enteritis. Status post colectomy with right lower quadrant ileostomy. With patient having his GI specialist over at [facility] and just saw them on Thursday for labs and CT scan reached out to [facility] and talked with GI who did not feel like this patient needs to be transferred and if he felt like he needed to be admitted he should be able to stay at our facility. She states that if things do escalate and he needs to be transferred they will accept him. With patient's CT findings and continued pain called our GI doctor is Latesha Sosa who was very helpful and agreed with admission and to start Cipro and Flagyl continue hydration antiemetics and pain control. Talked with hospitalist Laura who accepts patient for admission with GI consulting Patient updated with plan to be admitted here starting IV antibiotics IV hydration antiemetics and pain control with our GI specialist consult pending. He is comfortable with this plan and denies having any further questions. Medical Records Medical records reviewed: Yes I reviewed the external patient's medical records. Vital Signs Vital Signs: Vital Signs Temperature 36.6 C 10/25/24 08:37 Pulse Rate 88 10/25/24 08:37 Respiratory Rate 16 10/25/24 08:37 Blood Pressure 114/86 10/25/24 08:37 Pulse Oximetry 99 10/25/24 08:37 Temperature 36.3 C L 10/25/24 16:28 Pulse Rate 57 L 10/25/24 16:28 Respiratory Rate 18 10/25/24 16:28 Blood Pressure 102/65 10/25/24 16:28 Pulse Oximetry 98 10/25/24 16:28 Oxygen Delivery Room Air 10/25/24 16:30 Vitals reveiwed by me. Lab Data Lab results reviewed: Yes I reviewed the patient's lab results. 10/25/24 08:51 10/25/24 08:51 Labs: Lab Results 10/25/24 Range/Units 08:51 WBC 13.8 H (4.5-10.0) K/mm3 RBC 5.39 (4.6-6.20) M/mm3 Hgb 16.6 (14.0-18.0) g/dL Hct 46.6 (42.0-52.0) % MCV 86.5 (80-100) fl MCH 30.8 (26-34) pg MCHC 35.6 (32-36) g/dl RDW 12.4 (11.5-14.5) % Plt Count 397 H (150-375) k/mm3 MPV 8.3 (7.4-10.4) fl Immature Gran % (Auto) 0.5 (0-0.5) % Neut % (Auto) 67.4 (45.5-73.1) % Lymph % (Auto) 22.5 (18.3-44.2) % [place] % (Auto) 7.7 (2.6-8.5) % Eos % (Auto) 1.5 (0-4.4) % Baso % (Auto) 0.4 (0.2-1.2) % Lymph # (Auto) 3.10 (0.9-3.2) K/mm3 [place] # (Auto) 1.1 H (0.1-0.6) K/mm3 Eos # (Auto) 0.2 (0-0.3) K/mm3 Baso # (Auto) 0.1 (0.0-0.1) K/mm3 Abs Immat Gran (auto) 0.07 H (0.00-0.031) K/mm3 Absolute Neuts (auto) 9.3 H (1.3-6.7) K/mm3 Absolute Nucleated RBC 0.000 (0.0-0.012) K/mm3 Nucleated RBC % 0.0 (0.0-0.2) % Sodium 138 (137-145) mmol/L Potassium 3.9 (3.4-5.0) mmol/L Chloride 104 (98-107) mmol/L Carbon Dioxide 22 (22-30) mmol/L Anion Gap 12 (4-12) mmol/L BUN 9 (9-20) mg/dL Creatinine 1.08 (0.7-1.3) mg/dL Estim Creat Clear Calc 85 ml/min Estimated GFR > 60 (59 - ) Glucose 112 H (65-110) mg/dL Calcium 9.1 (8.4-10.2) mg/dL Total Bilirubin 0.8 (0.2-1.3) mg/dL AST 64 H (17-59) U/L ALT 136 H (6-50) U/L Alkaline Phosphatase 49 (38-126) U/L Total Protein 8.0 (6.3-8.2) g/dL Albumin 4.8 (3.5-5.1) g/dL Lipase 967 H (23-300) U/L Urine Color Dark yellow (Yellow) Urine Appearance Clear (Clear) Urine pH 6.0 (5.0-9.0) Ur Specific [place] 1.032 (1.001-1.035) Urine Protein 1+ H (Negative) mg/dL Urine Glucose (UA) Negative (Negative) mg/dL Urine Ketones Trace H (Negative) mg/dL Ur Blood (Man) Negative (Negative) Urine Nitrate Negative (Negative) Urine Bilirubin 1+ H (Negative) Urine Urobilinogen 1.0 (<2.0) mg/dL Add Ur Microanalysis Reviewed Leukocyte Esterase Rfl Negative (Negative) GEREMIAS/UL Urine RBC 0-2 (0-2) /hpf Urine WBC 0-5 (0-3) /hpf Ur Squamous Epith Cells None seen (Few) /hpf Urine Bacteria None seen /hpf Urine Casts 3-5 Urine Mucus Present /lpf Imaging Data Radiologist's impression: Impressions Abdomen/Pelvis CT 10/25/24 10:21 Impression: Extensive wall thickening of the mid to distal ileum, compatible with infectious/inflammatory enteritis. Status post colectomy with right lower quadrant ileostomy. Discharge Plan Discharge Clinical Impression: Enteritis Patient Disposition: Still a Patient Condition: Stable
[2024-10-25] MEDS: SODIUM CHLORIDE 0.9% IV 1,000 ML 999 ML IV CONT (10:07)
[2024-10-25] MEDS: FAMOTIDINE 20 MG/2 ML VIAL IV PUSH (10:08)
[2024-10-25] MEDS: ONDANSETRON INJ 4 MG/2 ML VIAL IV PUSH (10:08)
[2024-10-25] MEDS: DICYCLOMINE HCL INJ 20 MG/2 ML VIAL IM (10:08)
[2024-10-25] MEDS: KETOROLAC 30 MG/ML VIAL (*BKC) IV PUSH (10:08)
--- OUTSIDE RECORDS SUMMARY | 2024-10-25 10:21 | XMS_ITS | Clinical Summary ---
Author Organization [facility] [employer] Address [address] [place] [address] Care Team Providers Care Cork Grinder Name Role Phone Unavailable Primary Care Provider Unavailabl e Source Comments [facility],non-owned Affiliates and Associated Physician Practices is amultiple site organization consisting of ambulatory clinics and hospital sitesin [place], [place], [place] and [place]. This disclosure is being madepursuant to the Care Everywhere program and may not contain all information available regarding this patient. 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
--- OUTSIDE RECORDS SUMMARY | 2024-10-25 10:21 | XMS_ITS | Clinical Summary ---
Author Organization [facility] Address [facility] [place] [address] Care Team Providers Care Bulldozer/Loader/Compactor/Scraper Name Role Phone Sonya Mccann Primary Care Provider [phone] Allergies No known active allergies Medications escitalopram (LEXAPRO) 10 MG tablet Take 1 tablet (10 mg total) by mouth daily. 4 Active fluconazole (DIFLUCAN) 150 MG tablet Take 1 tablet (150 mg total) by mouth daily. 4 Active lisdexamfetamine (VYVANSE) 20 MG capsule Take 1 capsule (20 mg total) by mouth every morning. 4 Active dicyclomine (BENTYL) 20 MG tablet Take 1 tablet (20 mg total) by mouth every 6 (six) hours. 20 tablet 5 Active ondansetron (ZOFRAN-ODT) 4 MG disintegrating tablet Take 1 tablet (4 mg total) by mouth every 8 (eight) hours as needed for Nausea. 20 tablet 5 Active Social History Tobacco Use Types Packs/Day Years Used Date Smoking Tobacco: Never Passive Smoke Exposure: Never Smokeless Tobacco: Never Tobacco Cessation:Counseling Given: No Sex and Gender Information Value Date Recorded Sex Assigned at Male 07/22/2024 12:38 PM FLAME DEGREASER Legal Sex Male 12:33 PM FLAME DEGREASER Gender Identity Not on file Sexual Orientation Not on file Last Filed Vital Signs Vital Sign Reading Time Taken Comments Blood Pressure 130/78 07/22/2024 4:05 PM FLAME DEGREASER Pulse 72 07/22/2024 4:05 PM FLAME DEGREASER Temperature 37.1 C (98.7 F) 07/22/2024 4:05 PM FLAME DEGREASER Respiratory Rate 18 07/22/2024 4:05 PM FLAME DEGREASER Oxygen Saturation 98% 07/22/2024 4:05 PM FLAME DEGREASER Inhaled Oxygen Concentration - - Weight 86.2 kg (190 lb) 07/22/2024 1:07 PM FLAME DEGREASER Height 162.6 cm (5' 4 ) 07/22/2024 1:07 PM FLAME DEGREASER Body Mass Index 32.61 07/22/2024 1:07 PM FLAME DEGREASER Plan of Treatment Health Maintenance Due Date Last Done Comments Annual Physical 1993 Hepatitis C 2008 COVID-19 Vaccine ( season) 2024 06/23/2021 DTaP, Tdap and Td Vaccines (10 - Td or Tdap) 05/26/2031 05/26/2021, 03/03/2020, 05/11/2016, Additional history exists Hepatitis B Vaccines Completed 10/31/2002, 05/26/2000, 04/28/2000 Meningococcal Vaccine Aged Out 12/16/2004 No rekha meme eligible based on patient's age to complete this topic HPV Vaccines Aged Out No longer eligi ble based on patient's age to complete this topic Meningococcal B Vaccine Aged Out No l onger eligible based on patient's age to complete this topic Pneumococcal Vaccine: Pediatrics (0 to 5 Years) and At-Risk Patients (6 to 49 Years) Aged Out No longer eligible based on patient's age to complete this topic RSV Immunizations Under 20 Months Aged Out No longer eligible based on patient's age to complete this topic Insurance [employer] Care Teams Bulldozer/Loader/Compactor/Scraper Relationship Specialty Start Date End Date Sonya Mccann PA [address] [place] [address] PCP - General PHYSICIAN AUDIO NARRATOR 07/22/24
[2024-10-25] MEDS: HYDROmorphone HCL INJ (*CRX) 2 MG/ML VIAL 1 MG IV PUSH ×5 (11:55→21:13)
--- NOTE | 2024-10-25 15:04 | PC.NURSE ---
Report given to TRICIA Lara
[2024-10-25] MEDS: CIPROFLOXACIN 400 MG/D5W 200ML 200 ML 200 MG IVPB (15:06)
--- OUTSIDE RECORDS SUMMARY | 2024-10-25 15:25 | XMS_ITS | Clinical Summary ---
Author Organization [facility] [employer] Address [address] [place] [address] Care Team Providers Care Director Of Pulmonary Unit Name Role Phone Unavailable Primary Care Provider Unavailabl e Source Comments [facility],non-owned Affiliates and Associated Physician Practices is amultiple site organization consisting of ambulatory clinics and hospital sitesin [place], [place], [place] and [place]. This disclosure is being madepursuant to the Care Everywhere program and may not contain all information available regarding this patient. 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
--- OUTSIDE RECORDS SUMMARY | 2024-10-25 15:25 | XMS_ITS | Clinical Summary ---
Author Organization [facility] Address [facility] [place] [address] Care Team Providers Care Job Coach Name Role Phone Sonya Mccann Primary Care Provider [phone] Allergies No known active allergies Medications escitalopram [...] Sex Assigned at Male 07/22/2024 12:38 PM OFFICE RUNNER Legal Sex Male 12:33 PM OFFICE RUNNER Gender Identity Not on file Sexual Orientation Not on file Last Filed Vital Signs Vital Sign Reading Time Taken Comments Blood Pressure 130/78 07/22/2024 4:05 PM OFFICE RUNNER Pulse 72 07/22/2024 4:05 PM OFFICE RUNNER Temperature 37.1 C (98.7 F) 07/22/2024 4:05 PM OFFICE RUNNER Respiratory Rate 18 07/22/2024 4:05 PM OFFICE RUNNER Oxygen Saturation 98% 07/22/2024 4:05 PM OFFICE RUNNER Inhaled Oxygen Concentration - - Weight 86.2 kg (190 lb) 07/22/2024 1:07 PM OFFICE RUNNER Height 162.6 cm (5' 4 ) 07/22/2024 1:07 PM OFFICE RUNNER Body Mass Index 32.61 07/22/2024 1:07 PM OFFICE RUNNER Plan of Treatment Health Maintenance Due Date [...] complete this topic Insurance [employer] Care Teams Job Coach Relationship Specialty Start Date End Date Sonya Mccann PA [address] [place] [address] PCP - General PHYSICIAN DAIRY FARM SUPERVISOR 07/22/24
--- NOTE | 2024-10-25 15:26 | P.HP_ITS ---
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 Patient states that his output from his ostomy has been more watery than normal however is not increased in amount. He states that he has acute stabbing pain that goes from his epigastric area to his ileostomy. He states that the to stoma itself looks is sitting with his acutely tender to palpation. He denies bleeding from the stoma. He complains about nausea denies vomiting. States that he has been unable to eat or drink due to the pain. In the ED has leukocytosis at 13.8, AST of 64, ALT of 136, lipase of 967, urine bilirubin of 1+. CT of the abdomen shows Extensive wall thickening of the mid to distal ileum, compatible with infectious/inflammatory enteritis. With a normal pancreas. ED he was started on antibiotics, IV fluids and pain management. Review of Systems Review of Systems: 12 systems were reviewed and are negativ e except for as per HPI. [facility] Past Medical History Medical History Partial small bowel obstruction COVID-19 Abdominal muscle strain Depression Sore throat Personal history of colonic polyps Genital herpes simplex type 1 infection Anxiety Ulcerative colitis Ileostomy in place Surgical History Surgical History History of resection of rectum 2016 History of colectomy 2014 Family History Family History (Updated 10/25/24 @ 16:08 by Angie Falcon RN) Father Familial primary pulmonary hypertension Lung transplant recipient Social History Social History Smoking status: Never smoker Tobacco type: smokeless tobacco Smokeless tobacco user: chewing tobacco Alcohol intake: never Substance use type: marijuana Other substance usage details: THC edibles Do You Feel Safe in your Home?: Yes Lack of Transportation: No Lack of Food: Never True Current Housing: I Have Housing Concerned About Future Housing: No Difficulty Paying Gas/Electric Bills: No Difficulty Paying for Meds: No Currently Unemployed: No Education: Associate Degree Difficulty w/ Childcare or Family Care: No Living arrangements: alone Occupation/Education: occupation Spiritual care concerns: No Meds Home Medications and Allergies Home Medications Medication Instructions Recorded Confirmed Type No Home Medications 10/25/24 10/25/24 History Allergies Allergy/AdvReac Type Severity Reaction Status Date / Time erythromycin base Allergy Intermediate Rash Verified 10/25/24 08:39 morphine Allergy Intermediate Difficulty Verified 10/25/24 08:39 Breathing sulfisoxazole Allergy Intermediate Rash Verified 10/25/24 08:39 Vital Signs Vital Signs - 24 hr 10/25/24 08:37 10/25/24 10:08 10/25/24 10:15 Temperature 97.9 F Pulse Rate 88 76 81 Respiratory Rate 16 18 18 Blood Pressure 114/86 122/81 123/85 Pulse Oximetry 99 97 100 10/25/24 10:30 10/25/24 10:45 10/25/24 11:00 Temperature Pulse Rate 60 63 66 Respiratory Rate 16 18 16 Blood Pressure 107/66 103/81 109/75 Pulse Oximetry 100 100 100 10/25/24 11:15 10/25/24 11:30 10/25/24 11:45 Temperature Pulse Rate 59 L 62 63 Respiratory Rate 18 18 18 Blood Pressure 104/65 117/78 107/74 Pulse Oximetry 100 100 100 10/25/24 11:56 10/25/24 12:00 10/25/24 12:15 Temperature Pulse Rate 61 62 57 L Respiratory Rate 18 16 18 Blood Pressure 106/66 107/81 99/65 L Pulse Oximetry 100 100 98 10/25/24 12:30 10/25/24 13:07 10/25/24 13:25 Temperature Pulse Rate 56 L 67 62 Respiratory Rate 16 18 16 Blood Pressure 98/62 L 115/72 106/68 Pulse Oximetry 98 99 100 10/25/24 13:30 10/25/24 13:45 10/25/24 14:00 Temperature Pulse Rate 63 61 51 L Respiratory Rate 18 18 16 Blood Pressure 113/89 107/77 104/73 Pulse Oximetry 99 96 97 10/25/24 14:40 10/25/24 14:45 10/25/24 14:56 Temperature Pulse Rate 62 63 63 Respiratory Rate 16 18 16 Blood Pressure 110/59 L 107/73 107/73 Pulse Oximetry 98 98 96 Exam Narrative: General: well appearing, appears stated age. HEENT: normocephalic, atraumatic. Mucous membranes moist. EOMI, PERRLA, bilateral sclera anicteric, no conjunctival injection. Neck supple without JVD, lymphadenopathy, or bruit. Respiratory: clear to ascultation bilaterally. No rales/rhonic/wheezes. Cardiovascular: Regular rate and rhythm, normal S1-S2 upon ascultation. No murmurs, rubs, or clicks. PMI is nondisplaced, capillary refill less than 3 second. Abdomen: Soft, round, no pulsatile masses, nondistended and nontender. No rebound, no guarding. No CVA tenderness, no hepatosplenomegaly. Bowel sounds present to all four quadrants. No high pitch or tinkling sounds, resonant to percussion. Ileostomy beefy red with watery output Extremities: No cyanosis, clubbing, or edema present. Pulses are palpable 2/2. Active ROM to all four extremities. Neuro: Alert and orientated x 4. PERRLA. Cranial nerves 2-12 intact without focal deficit. Skin: Warm, dry, and intact, without rash, erythema, or lesion. Psych: pleasant, cooperative, normal speech, normal affect, no hallucinations, no dysarthia H&P: Results Labs Labs: Short CBC 10/25/24 Range/Units 08:51 WBC 13.8 H (4.5-10.0) K/mm3 Hgb 16.6 (14.0-18.0) g/dL Hct 46.6 (42.0-52.0) % Plt Count 397 H (150-375) k/mm3 BMP 10/25/24 08:51 Sodium 138 Potassium 3.9 Chloride 104 Carbon Dioxide 22 BUN 9 Creatinine 1.08 Glucose 112 H Calcium 9.1 Liver Function 10/25/24 Range/Units 08:51 Total Bilirubin 0.8 (0.2-1.3) mg/dL AST 64 H (17-59) U/L ALT 136 H (6-50) U/L Alkaline Phosphatase 49 (38-126) U/L Albumin 4.8 (3.5-5.1) g/dL Urine 10/25/24 Range/Units 08:51 Urine Color Dark yellow (Yellow) Urine Appearance Clear (Clear) Urine pH 6.0 (5.0-9.0) Ur Specific [place] 1.032 (1.001-1.035) Urine Protein 1+ H (Negative) mg/dL Urine Glucose (UA) Negative (Negative) mg/dL Assessment and Plan Assessment and plan (1) Enteritis: Code(s): K52.9 - Noninfective gastroenteritis and colitis, unspecified Status: Acute Assessment and Plan: GI consulted IV Flagyl and ciprofloxacin Monitor output from ostomy (2) Acute pain: Code(s): R52 - Pain, unspecified Status: Acute Assessment and Plan: Schedule Toradol Dilaudid p.r.n. Transition to orals when able (3) Elevated lipase: Code(s): R74.8 - Abnormal levels of other serum enzymes Status: Acute Assessment and Plan: Normal pancreas on CT LR bolus followed by 200 mls Repeat lipase in in a.m. (4) Leukocytosis: Code(s): D72.829 - Elevated white blood cell count, unspecified Status: Acute Assessment and Plan: Likely due to enteritis Antibiotics per above (5) Elevated liver enzymes: Code(s): R74.8 - Abnormal levels of other serum enzymes Status: Acute Assessment and Plan: CMP in the morning Quality VTE Prophylaxis VTE prophylaxis: mechanical ordered Hospitalist MIPS Advance Care Plan I have confirmed that the patient's Advanced Care Plan is present, code status is documented, or surrogate decision maker is listed in patient medical record.: Yes Medication Reconciliation I have utilized all available resources to obtain, update and review the patients current medications (includes all prescriptions, OTC, herbals, cannabis, and nutritional supplements).: Yes
[2024-10-25] MEDS: LACTATED RINGERS 1,000 ML 999 ML IV CONT (15:37)
--- NOTE | 2024-10-25 15:55 | PC.NURSE ---
This patient, Wali Valentin, was admitted to 3 [facility] Surg Room 300-01. Patient/family oriented to hospital policies and general routines including ID bracelet, bed and alarms, visiting hours, pain management, procedures, bathroom and other care routines, personal items, smoking policy, room service/diet, and visiting hours. Information on how to activate the Rapid Response Team has been discussed. Patient/Family are encouraged to report perceived risks to care and to ask questions if they do not understand what they are told or what they should do.
--- NOTE | 2024-10-25 15:59 | PC.NURSE ---
patient admitted with IV infusion going per order
[2024-10-25] MEDS: LACTATED RINGERS 1,000 ML 200 ML IV CONT ×2 (16:28→23:10)
[2024-10-25] MEDS: KETOROLAC 15 MG/ML VIAL (*BKC) IV PUSH ×2 (17:14→23:11)
[2024-10-25] MEDS: metroNIDAZOLE 500 MG/ISO 100ML 500 MG/100 ML BAG 100 MG IVPB ×2 (17:37→23:11)
[2024-10-26] VITALS (7 sets, daily range): BP systolic 105–123; BP diastolic 59–77; PULSE 54–81; RESP 16–18; TEMP 36.2–37.2; O2SAT 96–100
[2024-10-26] MEDS: diphenhydrAMINE HCl CAP 25 MG CAPSULE PO (00:46)
[2024-10-26] MEDS: HYDROmorphone HCL INJ (*CRX) 2 MG/ML VIAL 1 MG IV PUSH ×7 (00:46→23:19)
[2024-10-26] MEDS: CIPROFLOXACIN 200 MG/D5W 100ML 100 ML 100 MG IVPB (01:13)
[2024-10-26] MEDS: metroNIDAZOLE 500 MG/ISO 100ML 500 MG/100 ML BAG 100 MG IVPB ×3 (05:26→22:11)
[2024-10-26] MEDS: KETOROLAC 15 MG/ML VIAL (*BKC) IV PUSH ×4 (05:26→23:19)
[2024-10-26 06:28] LABS: Basophils Absolute Auto 0.1 K/mm3 (0.0-0.1); Basophils Percent Auto 1.1 % (0.2-1.2); Eosinophils Absolute Auto 0.3 K/mm3 (0-0.3); Eosinophils Percent Auto 4.4 % (0-4.4); Hematocrit 44.2 % (42.0-52.0); Immature Granulocyte Absolute 0.02 K/mm3 (0.00-0.031); Immature Granulocyte Percent A 0.3 % (0-0.5); Lymphocytes Absolute Auto 3.28 K/mm3 (0.9-3.2); Lymphocytes Percent Auto 49.8 % (18.3-44.2); Mean Corpuscular HGB Conc 33.9 g/dl (32-36); Mean Corpuscular Hemoglobin 30.4 pg (26-34); Mean Corpuscular Volume 89.7 fl (80-100); Mean Platelet Volume 8.3 fl (7.4-10.4); Monocytes Absolute Auto 0.6 K/mm3 (0.1-0.6); Monocytes Percent Auto 8.8 % (2.6-8.5); Neutrophils Absolute Auto 2.4 K/mm3 (1.3-6.7); Neutrophils Percent Auto 35.6 % (45.5-73.1); Platelet Count Result 324 k/mm3 (150-375); Red Blood Count 4.93 M/mm3 (4.6-6.20); Red Cell Distribution Width 12.4 % (11.5-14.5); White Blood Count 6.6 K/mm3 (4.5-10.0)
[2024-10-26 06:38] LABS: Alanine Aminotransferase 135 U/L (6-50); Albumin Level 4.1 g/dL (3.5-5.1); Alkaline Phosphatase 42 U/L (38-126); Anion Gap 6 mmol/L (4-12); Aspartate Amino Transferase 67 U/L (17-59); Bilirubin,Total 0.9 mg/dL (0.2-1.3); Blood Urea Nitrogen 9 mg/dL (9-20); Calcium 8.5 mg/dL (8.4-10.2); Carbon Dioxide 29 mmol/L (22-30); Chloride 102 mmol/L (98-107); Estimated CRCL calculation 78 ml/min; Estimated Glomerular Filt Rate > 60; Glucose 73 mg/dL (65-110); Lipase 96 U/L (23-300); Potassium 3.8 mmol/L (3.4-5.0); Sodium 137 mmol/L (137-145)
--- NOTE | 2024-10-26 08:22 | P.CONGI_ITS ---
Assessment and Plan Assessment and plan (1) History of colectomy: Code(s): Z90.49 - Acquired absence of other specified parts of digestive tract Status: Acute (2) Ileostomy in place: Code(s): Z93.2 - Ileostomy status Status: Chronic (3) Generalized abdominal pain: Code(s): R10.84 - Generalized abdominal pain Status: Acute (4) Regional ileitis of small intestine: Code(s): K50.00 - Crohn's disease of small intestine without complications Status: Acute Plan 1. Ileitis/Pain at Stoma/Generalized Abdominal pain / Nausea & Vomiting/ Decreased ileostomy output/ Leukocytosis: He presented to the ER 10/25/2024 with 3 days of abdominal pain with nausea and vomiting. He was seen at a tertiary ER and was discharged home. He states his abdominal pain has increased and had not been able to eat for around 24 hours with nausea and increased pain and pressure around his ostomy site. CT shows extensive wall thickening of the mid to distal ileum, compatible with infectious/inflammatory enteritis. His WBC was elevated at 13, but this has since normalized. Abdominal pain is still present but improving, no further nausea and vomiting. Continues to have pain at stoma, which this appears healthy. Differential: Infectious VS inflammatory vs. Stricture. I think its important to rule out underlying Crohn's. See below for UC history. - Start Solumedrol 40 mg IV daily - Continue Cipro and Flagyl - Will check C diff and Culture. - NPO status with IV hydration - Supportive tx with fluids, and antiemetics. - Will complete at ileostomy during this admission to evaluate for inflammation and rule out Crohn's disease - Further recs to follow after ileostomy 2. 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 He is following with Dr. Hernandez at [place] and surgeon is Dr. Yung Das but communication has been less than ideal and has not seen his GI in 8 months. Last ileoscopy 3-4 years ago. He reports inflammation on previous scope through ileostomy. This report may have been done utilizing a voice recognition system. Attempts have been made to correct errors. However, there may be uncorrected grammatical, spelling, and recognition errors present. GI Consult Note Consult date/time: 10/26/24 08:22 HPI: This is a pleasant 33 year old male with a past medical surgical history of ulcerative colitis status post subtotal colectomy with end ileostomy in 2013 and eventually a proctocolectomy in 2016. He also has history of c diff. he has a history of partial bowel obstruction last year, for which he was hospitalized for, this resolved with ileostomy irrigation and wound care consult. He presented to the ER on 10/25/2024 with complaints of abdominal pain. GI consulted for evaluation of abdominal pain. He was diagnosed with ulcerative colitis at age 20. He was initially treated with oral medications and remidcade, then underwent an ileostomy, and eventually had his rectum and anus removed in 2016. He reports that he has not been able to follow up with his GI doctor, Dr. Hernandez, due to long wait times for appointments (approximately 8 months) and poor communication with the office. He presents with abdominal pain that started early Saturday morning (10/22/2024) around 3:00 AM, waking him from sleep. The pain began in the lower right quadrant, then spread throughout his abdomen and eventually down to his testicles. He describes the pain as a stabbing sharp pain and rates it initially as 9/10, currently improved to 6/10. He reports the pain is somewhat similar to his previous bowel obstruction but not entirely the same, with similarities in pressure. He notes severe pain at the stoma site that he has never experienced before, describing it as feeling like somebody took a razor blade. He denies any changes in the appearance of his stoma and denies any herniation. He reports nausea and dry heaving at home, with some relief from Zofran administered yesterday. He reports decreased output from his ileostomy. He denies black stools, blood in stool, or fevers. He reports a history of C- diff. He denies taking any medications at home. He was seen at a tertiary ER where a CT scan showed inflammation, but he reports being discharged without treatment. He denies any recent infections. Prior to presenting to the ER, he tried irrigation of his ileostomy with no improvement in pain. His mother is wound care nurse. This had helped last year when he was hospitalized with partial bowel obstruction. He denies any recent steroids, or travel. He is wanting to get to the bottom of the inflammation that is being seen on numerous CT scans. He reports having inflammation noted on previous scope through his ileostomy around 3-[address] Hernandez. He denies any history of Crohn's disease diagnosis. He is not currently on any medications for his ulcerative colitis. He reports a family history of Crohn's disease in his mother and colon cancer in his maternal great-grandmother. His father has a history of double lung transplant. ENDOSCOPY HISTORY: EGD: No recent EGD available COLONOSCOPY: No recent colonoscopy available LABS AND STOOL STUDIES: 10/25/2024 WBC 13.8, HGB 16, HCT 46, MCV 86 10/25/2024 Na 138, K 3.9, BUN 9, creatinine 1.08 10/25/2024 total bilirubin 0.8, AST 64, ALT 136, Alkaline Phosphatase 49 10/25/2024 lipase 967 10/26/2024 lipase 96 IMAGING: CT Abdomen and Pelvis 10/25/2024 Impression: Extensive wall thickening of the mid to distal ileum, compatible with infectious/inflammatory enteritis. Status post colectomy with right lower quadrant ileostomy. [facility] Past Medical History Medical History Partial small bowel obstruction COVID-19 Abdominal muscle strain Depression Sore throat Personal history of colonic polyps Genital herpes simplex type 1 infection Anxiety Ulcerative colitis Ileostomy in place Surgical History Surgical History History of resection of rectum 2016 History of colectomy 2013 Family History Family History (Updated 10/25/24 @ 16:08 by Angie Falcon RN) Father Familial primary pulmonary hypertension Lung transplant recipient Social History Social History Smoking status: Never smoker Tobacco type: smokeless tobacco Smokeless tobacco user: chewing tobacco Alcohol intake: never Substance use type: marijuana Other substance usage details: THC edibles Do You Feel Safe in your Home?: Yes Lack of Transportation: No Lack of Food: Never True Current Housing: I Have Housing Concerned About Future Housing: No Difficulty Paying Gas/Electric Bills: No Difficulty Paying for Meds: No Currently Unemployed: No Education: Associate Degree Difficulty w/ Childcare or Family Care: No Living arrangements: alone Occupation/Education: occupation Spiritual care concerns: No Meds Home Medications and Allergies Home Medications Medication Instructions Recorded Confirmed Type No Home Medications 10/25/24 10/25/24 History Allergies Allergy/AdvReac Type Severity Reaction Status Date / Time erythromycin base Allergy Intermediate Rash Verified 10/25/24 08:39 morphine Allergy Intermediate Difficulty Verified 10/25/24 08:39 Breathing sulfisoxazole Allergy Intermediate Rash Verified 10/25/24 08:39 Vital Signs Vital Signs - 24 hr 10/25/24 08:37 10/25/24 10:08 10/25/24 10:15 Temperature 97.9 F Pulse Rate 88 76 81 Respiratory Rate 16 18 18 Blood Pressure 114/86 122/81 123/85 Pulse Oximetry 99 97 100 Oxygen Delivery 10/25/24 10:30 10/25/24 10:45 10/25/24 11:00 Temperature Pulse Rate 60 63 66 Respiratory Rate 16 18 16 Blood Pressure 107/66 103/81 109/75 Pulse Oximetry 100 100 100 Oxygen Delivery 10/25/24 11:15 10/25/24 11:30 10/25/24 11:45 Temperature Pulse Rate 59 L 62 63 Respiratory Rate 18 18 18 Blood Pressure 104/65 117/78 107/74 Pulse Oximetry 100 100 100 Oxygen Delivery 10/25/24 11:56 10/25/24 12:00 10/25/24 12:15 Temperature Pulse Rate 61 62 57 L Respiratory Rate 18 16 18 Blood Pressure 106/66 107/81 99/65 L Pulse Oximetry 100 100 98 Oxygen Delivery 10/25/24 12:30 10/25/24 13:07 10/25/24 13:25 Temperature Pulse Rate 56 L 67 62 Respiratory Rate 16 18 16 Blood Pressure 98/62 L 115/72 106/68 Pulse Oximetry 98 99 100 Oxygen Delivery 10/25/24 13:30 10/25/24 13:45 10/25/24 14:00 Temperature Pulse Rate 63 61 51 L Respiratory Rate 18 18 16 Blood Pressure 113/89 107/77 104/73 Pulse Oximetry 99 96 97 Oxygen Delivery 10/25/24 14:40 10/25/24 14:45 10/25/24 14:56 Temperature Pulse Rate 62 63 63 Respiratory Rate 16 18 16 Blood Pressure 110/59 L 107/73 107/73 Pulse Oximetry 98 98 96 Oxygen Delivery 10/25/24 16:28 10/25/24 16:30 10/25/24 20:00 Temperature 97.4 F L Pulse Rate 57 L Respiratory Rate 18 Blood Pressure 102/65 Pulse Oximetry 98 Oxygen Delivery Room Air Room Air 10/25/24 20:55 10/26/24 05:26 10/26/24 08:00 Temperature 97.8 F 97.3 F L Pulse Rate 60 54 L Respiratory Rate 16 18 Blood Pressure 103/72 117/70 Pulse Oximetry 100 97 Oxygen Delivery Room Air Exam 2 Const: General: comfortable and no acute distress HENMT: Face/Nose/Sinus: Normal nares present Eyes: General: appearance normal, both eyes and all related structures Neck: Neck: no JVD Resp: Auscultation: clear to auscultation bilaterally Cardio: Rate: regular rate Rhythm: regular rhythm GI: Inspection: non-distended GI Palp: Yes Tenderness to palpation present (GI) (right lower quadrant, ileostomy in right lower quadrant-stoma is pink) Auscultation: normal bowel sounds Skin: General skin exam: normal color Neuro: General: gait normal Speech: normal speech Extrem: General: normal to inspection Psych: Mental Status: mental status grossly normal Results Labs 10/26/24 06:00 10/26/24 06:00 Labs: Short CBC 10/25/24 10/26/24 Range/Units 08:51 06:00 WBC 13.8 H 6.6 (4.5-10.0) K/mm3 Hgb 16.6 15.0 (14.0-18.0) g/dL Hct 46.6 44.2 (42.0-52.0) % Plt Count 397 H 324 (150-375) k/mm3 BMP 10/25/24 10/26/24 08:51 06:00 Sodium 138 137 Potassium 3.9 3.8 Chloride 104 102 Carbon Dioxide 22 29 BUN 9 9 Creatinine 1.08 1.18 Glucose 112 H 73 Calcium 9.1 8.5 Liver Function 10/25/24 10/26/24 Range/Units 08:51 06:00 Total Bilirubin 0.8 0.9 (0.2-1.3) mg/dL AST 64 H 67 H (17-59) U/L ALT 136 H 135 H (6-50) U/L Alkaline Phosphatase 49 42 (38-126) U/L Albumin 4.8 4.1 (3.5-5.1) g/dL Urine 10/25/24 Range/Units 08:51 Urine Color Dark yellow (Yellow) Urine Appearance Clear (Clear) Urine pH 6.0 (5.0-9.0) Ur Specific [place] 1.032 (1.001-1.035) Urine Protein 1+ H (Negative) mg/dL Urine Glucose (UA) Negative (Negative) mg/dL
[2024-10-26 09:35] LABS: Magnesium 2.2 mg/dL (1.6-2.3)
[2024-10-26] MEDS: methylPREDNISolone SOD SUCC 40 MG VIAL IV PUSH (10:00)
[2024-10-26] MEDS: CIPROFLOXACIN 400 MG/D5W 200ML 200 ML 200 MG IVPB ×2 (11:12→21:03)
[2024-10-26 12:24] LABS: Toxigenic C. Diff NEGATIVE (NEGATIVE)
--- NOTE | 2024-10-26 12:50 | P.PNIM_ITS ---
Progress Note: A&P Assessment and Plan (1) Enteritis: Code(s): K52.9 - Noninfective gastroenteritis and colitis, unspecified Status: Acute Assessment and Plan: * GI consulted * IV Flagyl and ciprofloxacin * Monitor output from ostomy (2) Acute pain: Code(s): R52 - Pain, unspecified Status: Acute Assessment and Plan: * Schedule Toradol * Dilaudid p.r.n. * Transition to orals when able. * NPO for ileoscopy today. (3) Elevated lipase: Code(s): R74.8 - Abnormal levels of other serum enzymes Status: Acute Assessment and Plan: * Normal pancreas on CT * LR bolus followed by 200 mls. Currently receiving LR @200 ml/hr. * Lipase improved: 967>96. (4) Leukocytosis: Code(s): D72.829 - Elevated white blood cell count, unspecified Status: Acute Assessment and Plan: * Improved. WBC 6.6 today. * Likely due to enteritis * Antibiotics per above (5) Elevated liver enzymes: Code(s): R74.8 - Abnormal levels of other serum enzymes Status: Acute Assessment and Plan: * AST 67, ALT 135. * Trend levels. Subjective Date/time seen: 10/26/24 12:50 Interval history: Patient reports abdominal pain is a 7 , constant, and sharp. Patient denies chest pain, palpitations, headache, dizziness, or vomiting. Patient reports nausea. Review of Systems Review of Systems: All systems reviewed & are unremarkable except as noted in HPI and below Exam Const: General: no acute distress and uncomfortable Resp: Effort & Inspection: normal respiratory effort Auscultation: clear to auscultation bilaterally Cardio: Rate: regular rate Rhythm: regular rhythm GI: GI Palp: Yes Soft to palpation Auscultation: normal bowel sounds Neuro: Speech: normal speech Extrem: General: no pedal edema Psych: Mental Status: mental status grossly normal Affect: normal affect Objective Data Vital Signs Vital Signs: Vital Signs - 24 hr 10/25/24 13:07 10/25/24 13:25 10/25/24 13:30 Temperature Pulse Rate 67 62 63 Respiratory Rate 18 16 18 Blood Pressure 115/72 106/68 113/89 Pulse Oximetry 99 100 99 Oxygen Delivery 10/25/24 13:45 10/25/24 14:00 10/25/24 14:40 Temperature Pulse Rate 61 51 L 62 Respiratory Rate 18 16 16 Blood Pressure 107/77 104/73 110/59 L Pulse Oximetry 96 97 98 Oxygen Delivery 10/25/24 14:45 10/25/24 14:56 10/25/24 16:28 Temperature 97.4 F L Pulse Rate 63 63 57 L Respiratory Rate 18 16 18 Blood Pressure 107/73 107/73 102/65 Pulse Oximetry 98 96 98 Oxygen Delivery 10/25/24 16:30 10/25/24 20:00 10/25/24 20:55 Temperature 97.8 F Pulse Rate 60 Respiratory Rate 16 Blood Pressure 103/72 Pulse Oximetry 100 Oxygen Delivery Room Air Room Air 10/26/24 05:26 10/26/24 08:00 Temperature 97.3 F L Pulse Rate 54 L Respiratory Rate 18 Blood Pressure 117/70 Pulse Oximetry 97 Oxygen Delivery Room Air Intake/Output Intake/Output: Intake & Output 10/23/24 10/24/24 10/25/24 10/26/24 23:59 23:59 23:59 23:59 Intake Total 1999 850 Balance 1999 850 Meds/Results Medications: Active Medications Generic Name Dose Route Start Last Admin Trade Name Freq PRN Reason Stop Dose Admin Diphenhydramine HCl 25 mg 10/26/24 00:00 10/26/24 00:46 Diphenhydramine Hcl Cap 25 Mg Capsule PO 25 mg Q6H PRN Administration Itching Hydromorphone HCl 1 mg 10/25/24 15:22 10/26/24 11:41 Hydromorphone Hcl Inj (*Crx) 2 Mg/Ml Vial IV PUSH 1 mg Q3H PRN Administration Pain Rated 7-10 Metronidazole 500 mg in 100 mls @ 100 mls/hr 10/25/24 23:30 10/26/24 06:26 Flagyl 500 Mg/Iso Soln 100 Ml IVPB Infused Q8HR ELDER Infusion Lactated Ringer's 1,000 mls @ 200 mls/hr 10/25/24 15:30 10/26/24 05:26 Lr - Lactated Ringers Iv IV CONT Not Given .Q5H ELDER Ciprofloxacin/Dextrose 200 mls @ 200 mls/hr 10/26/24 11:00 10/26/24 11:12 Cipro 400 Mg/D5w 200 Ml IVPB 200 mls/hr Q12HR ELDER Administration Ketorolac Tromethamine 15 mg 10/25/24 18:00 10/26/24 11:42 Ketorolac 15 Mg/Ml Vial (*Bkc) IV PUSH 15 mg Q6HR ELDER Administration Methylprednisolone Sodium Succinate 40 mg 10/26/24 09:00 10/26/24 10:00 Methylprednisolone Sod Succ 40 Mg Vial IV PUSH 40 mg DAILY ELDER Administration Trimethobenzamide HCl 200 mg 10/25/24 15:34 Trimethobenzamide Hcl 200 Mg/2 Ml Vial IM Q6H PRN Nausea And Vomiting Radiology Results: ITS Impressions Abdomen/Pelvis CT 10/25/24 10:21 Impression: Extensive wall thickening of the mid to distal ileum, compatible with infectious/inflammatory enteritis. Status post colectomy with right lower quadrant ileostomy. Labs Labs: Laboratory Results - last 24 hr 10/26/24 10/26/24 06:00 11:15 WBC 6.6 RBC 4.93 Hgb 15.0 Hct 44.2 MCV 89.7 MCH 30.4 MCHC 33.9 RDW 12.4 Plt Count 324 MPV 8.3 Immature Gran % (Auto) 0.3 Neut % (Auto) 35.6 L Lymph % (Auto) 49.8 [place] % (Auto) 8.8 H Eos % (Auto) 4.4 Baso % (Auto) 1.1 Lymph # (Auto) 3.28 [place] # (Auto) 0.6 Eos # (Auto) 0.3 Baso # (Auto) 0.1 Abs Immat Gran (auto) 0.02 Absolute Neuts (auto) 2.4 Absolute Nucleated RBC 0.000 Nucleated RBC % 0.0 Sodium 137 Potassium 3.8 Chloride 102 Carbon Dioxide 29 Anion Gap 6 BUN 9 Creatinine 1.18 Estim Creat Clear Calc 78 Estimated GFR > 60 Glucose 73 Calcium 8.5 Magnesium 2.2 Total Bilirubin 0.9 AST 67 H ALT 135 H Alkaline Phosphatase 42 Total Protein 7.0 Albumin 4.1 Lipase 96 C. difficile (PCR) Negative Quality VTE Prophylaxis VTE prophylaxis: mechanical ordered
[2024-10-26] MEDS: LACTATED RINGERS 1,000 ML 150 ML IV CONT (14:52)
--- NOTE | 2024-10-26 15:10 | P.PNAN_ITS ---
Anes - Initial Pre Proc Eval Procedure: Operation Date: 10/26/24 16:30 Proposed Procedures p Ileoscopy - Fransisco Gibson MD Date/Time: 10/26/24 15:10 Surgeon: Maxi Alfaro MD Pre Op Diagnosis: Enteritis Patient Data Age: 34 Gender: M Height: 1.63 m Weight: 87.3 kg Last Vital Signs Temp 36.3 C L 10/26/24 14:40 Pulse 58 L 10/26/24 14:40 Resp 18 10/26/24 14:40 BP 105/65 10/26/24 14:40 Pulse Ox 97 10/26/24 14:40 O2 Del Method Room Air 10/26/24 14:40 Allergies Allergy/AdvReac Type Severity Reaction Status Date / Time erythromycin base Allergy Intermediate Rash Verified 10/26/24 14:49 morphine Allergy Intermediate Difficulty Verified 10/26/24 14:49 Breathing sulfisoxazole Allergy Intermediate Rash Verified 10/26/24 14:49 Home Medications Medication Instructions Recorded Confirmed Type No Home Medications 10/25/24 10/25/24 History Laboratory Tests 10/26/24 10/26/24 10/26/24 06:00 11:15 11:16 WBC 6.6 K/mm3 (4.5-10.0) RBC 4.93 M/mm3 (4.6-6.20) Hgb 15.0 g/dL (14.0-18.0) Hct 44.2 % (42.0-52.0) MCV 89.7 fl (80-100) MCH 30.4 pg (26-34) MCHC 33.9 g/dl (32-36) RDW 12.4 % (11.5-14.5) Plt Count 324 k/mm3 (150-375) MPV 8.3 fl (7.4-10.4) Immature Gran % (Auto) 0.3 % (0-0.5) Neut % (Auto) 35.6 L % (45.5-73.1) Lymph % (Auto) 49.8 H % (18.3-44.2) [place] % (Auto) 8.8 H % (2.6-8.5) Eos % (Auto) 4.4 % (0-4.4) Baso % (Auto) 1.1 % (0.2-1.2) Lymph # (Auto) 3.28 H K/mm3 (0.9-3.2) [place] # (Auto) 0.6 K/mm3 (0.1-0.6) Eos # (Auto) 0.3 K/mm3 (0-0.3) Baso # (Auto) 0.1 K/mm3 (0.0-0.1) Abs Immat Gran (auto) 0.02 K/mm3 (0.00-0.031) Absolute Neuts (auto) 2.4 K/mm3 (1.3-6.7) Absolute Nucleated RBC 0.000 K/mm3 (0.0-0.012) Nucleated RBC % 0.0 % (0.0-0.2) Sodium 137 mmol/L (137-145) Potassium 3.8 mmol/L (3.4-5.0) Chloride 102 mmol/L (98-107) Carbon Dioxide 29 mmol/L (22-30) Anion Gap 6 mmol/L (4-12) BUN 9 mg/dL (9-20) Creatinine 1.18 mg/dL (0.7-1.3) Estim Creat Clear Calc 78 ml/min Estimated GFR > 60 (59 - ) Glucose 73 mg/dL (65-110) Calcium 8.5 mg/dL (8.4-10.2) Magnesium 2.2 mg/dL (1.6-2.3) Total Bilirubin 0.9 mg/dL (0.2-1.3) AST 67 H U/L (17-59) ALT 135 H U/L (6-50) Alkaline Phosphatase 42 U/L (38-126) Total Protein 7.0 g/dL (6.3-8.2) Albumin 4.1 g/dL (3.5-5.1) Lipase 96 U/L (23-300) Stool Calprotectin Pending C. difficile (PCR) Negative (NEGATIVE) Patient hx anesthesia problems: none Family hx anesthesia problems: none Results Review: All pre-operative results and documents have been reviewed as part of the pre- operative evaluation. [facility] Past Medical History Medical History Partial small bowel obstruction COVID-19 Abdominal muscle strain Depression Sore throat Personal history of colonic polyps Genital herpes simplex type 1 infection Anxiety Ulcerative colitis Ileostomy in place Surgical History Surgical History History of resection of rectum 2016 History of colectomy 2013 Family History Family History Father Familial primary pulmonary hypertension Lung transplant recipient Social History Social History Smoking status: Never smoker Tobacco type: smokeless tobacco Smokeless tobacco user: chewing tobacco Alcohol intake: never Substance use type: marijuana Other substance usage details: THC edibles Do You Feel Safe in your Home?: Yes Lack of Transportation: No Lack of Food: Never True Current Housing: I Have Housing Concerned About Future Housing: No Difficulty Paying Gas/Electric Bills: No Difficulty Paying for Meds: No Currently Unemployed: No Education: Associate Degree Difficulty w/ Childcare or Family Care: No Living arrangements: alone Occupation/Education: occupation Spiritual care concerns: No Anes - Eval Final PreProcedure Day of Procedure 10/26/24 15:10 Patient weight: obese Heart: regular rate and rhythm Lungs: clear to auscultation Airway: Mallampati scale class II Neurological: alert and oriented Last oral intake: >/= 8 hours ASA classification: III Emergent: no Anesthetic plan: proceed Anesthesia type and monitoring: general GIVS and standard monitoring Results Review: All pre-operative results and documents have been reviewed as part of the pre- operative evaluation. Informed Consent: The patient's anesthetic plan and its attendant risks and benefits were discussed with the patient/family/POA. Questions were solicited and answers provided to the satisfaction of the patient/family/POA.
[2024-10-27] MEDS: HYDROmorphone HCL INJ (*CRX) 2 MG/ML VIAL 1 MG IV PUSH ×7 (02:29→21:35)
[2024-10-27 04:19] VITALS: BP 102/61; PULSE 67; RESP 16; TEMP 36.9; O2SAT 98
[2024-10-27] MEDS: KETOROLAC 15 MG/ML VIAL (*BKC) IV PUSH ×3 (05:29→17:50)
[2024-10-27] MEDS: metroNIDAZOLE 500 MG/ISO 100ML 500 MG/100 ML BAG 100 MG IVPB ×3 (05:33→23:00)
[2024-10-27 06:16] LABS: Basophils Absolute Auto 0.1 K/mm3 (0.0-0.1); Basophils Percent Auto 0.4 % (0.2-1.2); Eosinophils Absolute Auto 0.1 K/mm3 (0-0.3); Eosinophils Percent Auto 0.7 % (0-4.4); Hematocrit 38.7 % (42.0-52.0); Hemoglobin 13.3 g/dL (14.0-18.0); Immature Granulocyte Absolute 0.06 K/mm3 (0.00-0.031); Immature Granulocyte Percent A 0.5 % (0-0.5); Lymphocytes Absolute Auto 2.67 K/mm3 (0.9-3.2); Lymphocytes Percent Auto 21.1 % (18.3-44.2); Mean Corpuscular HGB Conc 34.4 g/dl (32-36); Mean Corpuscular Hemoglobin 30.1 pg (26-34); Mean Corpuscular Volume 87.6 fl (80-100); Mean Platelet Volume 8.7 fl (7.4-10.4); Monocytes Absolute Auto 0.8 K/mm3 (0.1-0.6); Monocytes Percent Auto 6.2 % (2.6-8.5); Neutrophils Percent Auto 71.1 % (45.5-73.1); Platelet Count Result 327 k/mm3 (150-375); Red Blood Count 4.42 M/mm3 (4.6-6.20); Red Cell Distribution Width 12.1 % (11.5-14.5); White Blood Count 12.7 K/mm3 (4.5-10.0)
[2024-10-27 06:29] LABS: Alanine Aminotransferase 111 U/L (6-50); Albumin Level 3.4 g/dL (3.5-5.1); Alkaline Phosphatase 44 U/L (38-126); Anion Gap 7 mmol/L (4-12); Aspartate Amino Transferase 50 U/L (17-59); Bilirubin,Total 0.4 mg/dL (0.2-1.3); Blood Urea Nitrogen 10 mg/dL (9-20); Carbon Dioxide 25 mmol/L (22-30); Chloride 104 mmol/L (98-107); Estimated CRCL calculation 95 ml/min; Estimated Glomerular Filt Rate > 60; Glucose 169 mg/dL (65-110); Potassium 3.7 mmol/L (3.4-5.0); Sodium 136 mmol/L (137-145)
[2024-10-27] MEDS: CIPROFLOXACIN 400 MG/D5W 200ML 200 ML 200 MG IVPB ×2 (09:04→21:37)
--- NOTE | 2024-10-27 13:03 | P.PNIM_ITS ---
Progress Note: A&P Assessment and Plan (1) Enteritis: Code(s): K52.9 - Noninfective gastroenteritis and colitis, unspecified Status: Acute Assessment and Plan: * GI consulted * Colonoscopy completed on 10/26/24 showed: The terminal ileum was examined and was normal. Scoped was inserted through the ileostomy and advanced about 25 cm, no signs of ileitis, no active inflammation, no erosions, no ulcers, no stricture, no signs of active IBD. Multiple biopsies were obtained. Possible infections enteritis, continue with abx. * IV Flagyl and ciprofloxacin * Monitor output from ostomy * Stool for c diff negative. * Stool Calprotectin pending. * Stool Shigella Toxins reflex ecoli negative. * Stool Salmonella/shigella culture pending. * Stool Camphylobacter EIA negative. (2) Acute pain: Code(s): R52 - Pain, unspecified Status: Acute Assessment and Plan: * Schedule Toradol * Dilaudid p.r.n. * Transition to orals when able. (3) Elevated lipase: Code(s): R74.8 - Abnormal levels of other serum enzymes Status: Acute Assessment and Plan: * Lipase improved: 967>96. (4) Leukocytosis: Code(s): D72.829 - Elevated white blood cell count, unspecified Status: Acute Assessment and Plan: * Improved. WBC 12.7 today. * Likely due to enteritis. * Antibiotics per above. (5) Elevated liver enzymes: Code(s): R74.8 - Abnormal levels of other serum enzymes Status: Acute Assessment and Plan: * AST 50, ALT 111. * Trend levels. Subjective Date/time seen: 10/27/24 13:03 Interval history: Patient reports abdominal pain is a 6 , constant, and sharp. Patient denies chest pain, palpitations, headache, dizziness, nausea, or vomiting. Patient reports tolerating food. Review of Systems Review of Systems: All systems reviewed & are unremarkable except as noted in HPI and below Exam Const: General: no acute distress and uncomfortable Resp: Effort & Inspection: normal respiratory effort Auscultation: clear to auscultation bilaterally Cardio: Rate: regular rate Rhythm: regular rhythm GI: GI Palp: Yes Soft to palpation Auscultation: normal bowel sounds Neuro: Speech: normal speech Extrem: General: no pedal edema Psych: Mental Status: mental status grossly normal Affect: normal affect Objective Data Vital Signs Vital Signs: Vital Signs - 24 hr 10/26/24 14:40 10/26/24 15:25 10/26/24 15:35 Temperature 97.4 F L Pulse Rate 58 L 78 62 Respiratory Rate 18 16 18 Blood Pressure 105/65 122/66 114/67 Pulse Oximetry 97 96 97 Oxygen Delivery Room Air Room Air Room Air 10/26/24 15:45 10/26/24 16:00 10/26/24 19:52 Temperature 97.1 F L 99.0 F Pulse Rate 64 63 81 Respiratory Rate 18 18 16 Blood Pressure 111/59 L 123/77 115/72 Pulse Oximetry 100 98 98 Oxygen Delivery Room Air 10/26/24 20:00 10/27/24 04:19 10/27/24 08:00 Temperature 98.5 F Pulse Rate 67 Respiratory Rate 16 Blood Pressure 102/61 Pulse Oximetry 98 Oxygen Delivery Room Air Room Air Intake/Output Intake/Output: Intake & Output 10/24/24 10/25/24 10/26/24 10/27/24 23:59 23:59 23:59 23:59 Intake Total 1999 3890 300 Balance 1999 3890 300 Meds/Results Medications: Active Medications Generic Name Dose Route Start Last Admin Trade Name Freq PRN Reason Stop Dose Admin Diphenhydramine HCl 25 mg 10/26/24 00:00 10/26/24 00:46 Diphenhydramine Hcl Cap 25 Mg Capsule PO 25 mg Q6H PRN Administration Itching Hydromorphone HCl 1 mg 10/25/24 15:22 10/27/24 12:31 Hydromorphone Hcl Inj (*Crx) 2 Mg/Ml Vial IV PUSH 1 mg Q3H PRN Administration Pain Rated 7-10 Metronidazole 500 mg in 100 mls @ 100 mls/hr 10/25/24 23:30 10/27/24 06:33 Flagyl 500 Mg/Iso Soln 100 Ml IVPB Infused Q8HR ELDER Infusion Ciprofloxacin/Dextrose 200 mls @ 200 mls/hr 10/26/24 11:00 10/27/24 11:22 Cipro 400 Mg/D5w 200 Ml IVPB Infused Q12HR ELDER Infusion Ketorolac Tromethamine 15 mg 10/25/24 18:00 10/27/24 11:13 Ketorolac 15 Mg/Ml Vial (*Bkc) IV PUSH 15 mg Q6HR ELDER Administration Trimethobenzamide HCl 200 mg 10/25/24 15:34 Trimethobenzamide Hcl 200 Mg/2 Ml Vial IM Q6H PRN Nausea And Vomiting Radiology Results: ITS Impressions Abdomen/Pelvis CT 10/25/24 10:21 Impression: Extensive wall thickening of the mid to distal ileum, compatible with infec tious/inflammatory enteritis. Status post colectomy with right lower quadrant ileostomy. Labs Labs: Laboratory Results - last 24 hr 10/27/24 05:19 WBC 12.7 H RBC 4.42 L Hgb 13.3 L Hct 38.7 L MCV 87.6 MCH 30.1 MCHC 34.4 RDW 12.1 Plt Count 327 MPV 8.7 Immature Gran % (Auto) 0.5 Neut % (Auto) 71.1 Lymph % (Auto) 21.1 [place] % (Auto) 6.2 Eos % (Auto) 0.7 Baso % (Auto) 0.4 Lymph # (Auto) 2.67 [place] # (Auto) 0.8 H Eos # (Auto) 0.1 Baso # (Auto) 0.1 Abs Immat Gran (auto) 0.06 H Absolute Neuts (auto) 9.0 H Absolute Nucleated RBC 0.000 Nucleated RBC % 0.0 Sodium 136 L Potassium 3.7 Chloride 104 Carbon Dioxide 25 Anion Gap 7 BUN 10 Creatinine 0.96 Estim Creat Clear Calc 95 Estimated GFR > 60 Glucose 169 H Calcium 8.0 L Total Bilirubin 0.4 AST 50 ALT 111 H Alkaline Phosphatase 44 Total Protein 6.0 L Albumin 3.4 L Quality VTE Prophylaxis VTE prophylaxis: mechanical ordered
[2024-10-27 14:00] VITALS: BP 97/61; PULSE 68; RESP 18; TEMP 36.7; O2SAT 99
--- NOTE | 2024-10-27 17:44 | P.PNGI_ITS ---
Progress Note: A&P Assessment and Plan (1) Enteritis: Code(s): K52.9 - Noninfective gastroenteritis and colitis, unspecified Status: Acute Assessment and Plan: doing better with medical treatment ileostomy output is back to his baseline no major findings yesterday with ileoscopy hopefully home tomorrow and can follow-up with his GI doctor (2) Ileostomy in place: Code(s): Z93.2 - Ileostomy status Status: Chronic (3) Generalized abdominal pain: Code(s): R10.84 - Generalized abdominal pain Status: Acute (4) Ulcerative colitis: Code(s): K51.90 - Ulcerative colitis, unspecified, without complications Status: Acute Subjective Date/time seen: 10/27/24 17:44 Interval history: pain has improved from 10 to 5 eating more yesterday no signs of ibd by ileoscopy Review of Systems Review of Systems: All systems reviewed & are unremarkable except as noted in HPI and below Exam Const: General: no acute distress and uncomfortable HENMT: Face/Nose/Sinus: Normal nares present Eyes: Sclera: sclerae normal Neck: Neck: supple Resp: Effort & Inspection: normal respiratory effort Auscultation: clear to auscultation bilaterally Cardio: Rate: regular rate Rhythm: regular rhythm GI: GI Palp: Yes Soft to palpation Auscultation: normal bowel sounds Other: less tender, no rebound ileostomy ok Skin: General skin exam: normal color Neuro: Speech: normal speech Extrem: General: normal to inspection and no pedal edema Psych: Mental Status: mental status grossly normal Affect: normal affect Objective Data Vital Signs Vital Signs: Vital Signs - 24 hr 10/26/24 19:52 10/26/24 20:00 10/27/24 04:19 Temperature 99.0 F 98.5 F Pulse Rate 81 67 Respiratory Rate 16 16 Blood Pressure 115/72 102/61 Pulse Oximetry 98 98 Oxygen Delivery Room Air 10/27/24 08:00 10/27/24 14:00 Temperature 98.0 F Pulse Rate 68 Respiratory Rate 18 Blood Pressure 97/61 L Pulse Oximetry 99 Oxygen Delivery Room Air Intake/Output Intake/Output: Intake & Output 10/24/24 10/25/24 10/26/24 10/27/24 23:59 23:59 23:59 23:59 Intake Total 1999 3890 2140 Balance 1999 3890 2140 Meds/Results Medications: Active Medications Generic Name Dose Route Start Last Admin Trade Name Freq PRN Reason Stop Dose Admin Diphenhydramine HCl 25 mg 10/26/24 00:00 10/26/24 00:46 Diphenhydramine Hcl Cap 25 Mg Capsule PO 25 mg Q6H PRN Administration Itching Hydromorphone HCl 1 mg 10/25/24 15:22 10/27/24 15:48 Hydromorphone Hcl Inj (*Crx) 2 Mg/Ml Vial IV PUSH 1 mg Q3H PRN Administration Pain Rated 7-10 Metronidazole 500 mg in 100 mls @ 100 mls/hr 10/25/24 23:30 10/27/24 15:27 Flagyl 500 Mg/Iso Soln 100 Ml IVPB Infused Q8HR ELDER Infusion Ciprofloxacin/Dextrose 200 mls @ 200 mls/hr 10/26/24 11:00 10/27/24 11:22 Cipro 400 Mg/D5w 200 Ml IVPB Infused Q12HR ELDER Infusion Ketorolac Tromethamine 15 mg 10/25/24 18:00 10/27/24 11:13 Ketorolac 15 Mg/Ml Vial (*Bkc) IV PUSH 15 mg Q6HR ELDER Administration Trimethobenzamide HCl 200 mg 10/25/24 15:34 Trimethobenzamide Hcl 200 Mg/2 Ml Vial IM Q6H PRN Nausea And Vomiting Radiology Results: ITS Impressions Abdomen/Pelvis CT 10/25/24 10:21 Impression: Extensive wall thickening of the mid to distal ileum, compatible with infectious/inflammatory enteritis. Status post colectomy with right lower quadrant ileostomy. Labs Labs: Laboratory Results - last 24 hr 10/27/24 05:19 WBC 12.7 H RBC 4.42 L Hgb 13.3 L Hct 38.7 L MCV 87.6 MCH 30.1 MCHC 34.4 RDW 12.1 Plt Count 327 MPV 8.7 Immature Gran % (Auto) 0.5 Neut % (Auto) 71.1 Lymph % (Auto) 21.1 [place] % (Auto) 6.2 Eos % (Auto) 0.7 Baso % (Auto) 0.4 Lymph # (Auto) 2.67 [place] # (Auto) 0.8 H Eos # (Auto) 0.1 Baso # (Auto) 0.1 Abs Immat Gran (auto) 0.06 H Absolute Neuts (auto) 9.0 H Absolute Nucleated RBC 0.000 Nucleated RBC % 0.0 Sodium 136 L Potassium 3.7 Chloride 104 Carbon Dioxide 25 Anion Gap 7 BUN 10 Creatinine 0.96 Estim Creat Clear Calc 95 Estimated GFR > 60 Glucose 169 H Calcium 8.0 L Total Bilirubin 0.4 AST 50 ALT 111 H Alkaline Phosphatase 44 Total Protein 6.0 L Albumin 3.4 L
[2024-10-27 20:38] VITALS: BP 113/75; PULSE 61; RESP 16; TEMP 36.4; O2SAT 99
[2024-10-27] MEDS: diphenhydrAMINE HCl CAP 25 MG CAPSULE 50 MG PO (21:36)
[2024-10-28] MEDS: KETOROLAC 15 MG/ML VIAL (*BKC) IV PUSH ×3 (00:35→11:39)
[2024-10-28 05:23] LABS: Basophils Absolute Auto 0.1 K/mm3 (0.0-0.1); Basophils Percent Auto 1.1 % (0.2-1.2); Eosinophils Absolute Auto 0.3 K/mm3 (0-0.3); Eosinophils Percent Auto 3.6 % (0-4.4); Hemoglobin 14.2 g/dL (14.0-18.0); Immature Granulocyte Absolute 0.04 K/mm3 (0.00-0.031); Immature Granulocyte Percent A 0.5 % (0-0.5); Lymphocytes Absolute Auto 3.88 K/mm3 (0.9-3.2); Lymphocytes Percent Auto 49.4 % (18.3-44.2); Mean Corpuscular HGB Conc 34.6 g/dl (32-36); Mean Corpuscular Hemoglobin 30.5 pg (26-34); Mean Platelet Volume 8.3 fl (7.4-10.4); Monocytes Absolute Auto 0.7 K/mm3 (0.1-0.6); Monocytes Percent Auto 8.9 % (2.6-8.5); Neutrophils Absolute Auto 2.9 K/mm3 (1.3-6.7); Neutrophils Percent Auto 36.5 % (45.5-73.1); Platelet Count Result 317 k/mm3 (150-375); Red Blood Count 4.66 M/mm3 (4.6-6.20); Red Cell Distribution Width 12.4 % (11.5-14.5); White Blood Count 7.9 K/mm3 (4.5-10.0)
[2024-10-28 05:36] VITALS: BP 112/74; PULSE 68; RESP 16; TEMP 36.5; O2SAT 98
[2024-10-28 05:36] LABS: Alanine Aminotransferase 126 U/L (6-50); Albumin Level 3.5 g/dL (3.5-5.1); Alkaline Phosphatase 43 U/L (38-126); Anion Gap 5 mmol/L (4-12); Aspartate Amino Transferase 67 U/L (17-59); Bilirubin,Total 0.4 mg/dL (0.2-1.3); Blood Urea Nitrogen 8 mg/dL (9-20); Calcium 8.2 mg/dL (8.4-10.2); Carbon Dioxide 29 mmol/L (22-30); Chloride 105 mmol/L (98-107); Estimated CRCL calculation 90 ml/min; Estimated Glomerular Filt Rate > 60; Glucose 95 mg/dL (65-110); Potassium 3.9 mmol/L (3.4-5.0); Sodium 139 mmol/L (137-145)
[2024-10-28] MEDS: metroNIDAZOLE 500 MG/ISO 100ML 500 MG/100 ML BAG 100 MG IVPB ×2 (05:41→13:22)
[2024-10-28] MEDS: CIPROFLOXACIN 400 MG/D5W 200ML 200 ML 200 MG IVPB (09:52)
--- NOTE | 2024-10-28 11:19 | P.PNIM_ITS ---
Subjective Date/time seen: 10/28/24 11:19 Review of Systems Review of Systems: All systems reviewed & are unremarkable except as noted in HPI and below Objective Data Vital Signs Vital Signs: Vital Signs - 24 hr 10/27/24 14:00 10/27/24 20:38 10/28/24 05:36 Temperature 98.0 F 97.6 F 97.7 F Pulse Rate 68 61 68 Respiratory Rate 18 16 16 Blood Pressure 97/61 L 113/75 112/74 Pulse Oximetry 99 99 98 Oxygen Delivery 10/28/24 08:00 Temperature Pulse Rate Respiratory Rate Blood Pressure Pulse Oximetry Oxygen Delivery Room Air Intake/Output Intake/Output: Intake & Output 10/25/24 10/26/24 10/27/24 10/28/24 23:59 23:59 23:59 23:59 Intake Total 1999 3890 2580 400 Balance 1999 3890 2580 400 Meds/Results Medications: Active Medications Generic Name Dose Route Start Last Admin Trade Name Freq PRN Reason Stop Dose Admin Diphenhydramine HCl 25 mg 10/26/24 00:00 10/26/24 00:46 Diphenhydramine Hcl Cap 25 Mg Capsule PO 25 mg Q6H PRN Administration Itching Diphenhydramine HCl 50 mg 10/27/24 18:01 10/27/24 21:36 Diphenhydramine Hcl Cap 25 Mg Capsule PO 50 mg HS PRN Administration Insomnia Hydromorphone HCl 1 mg 10/25/24 15:22 10/27/24 21:35 Hydromorphone Hcl Inj (*Crx) 2 Mg/Ml Vial IV PUSH 1 mg Q3H PRN Administration Pain Rated 7-10 Metronidazole 500 mg in 100 mls @ 100 mls/hr 10/25/24 23:30 10/28/24 06:41 Flagyl 500 Mg/Iso Soln 100 Ml IVPB Infused Q8HR ELDER Infusion Ciprofloxacin/Dextrose 200 mls @ 200 mls/hr 10/26/24 11:00 10/28/24 10:52 Cipro 400 Mg/D5w 200 Ml IVPB Infused Q12HR ELDER Infusion Ketorolac Tromethamine 15 mg 10/25/24 18:00 10/28/24 05:41 Ketorolac 15 Mg/Ml Vial (*Bkc) IV PUSH 15 mg Q6HR ELDER Administration Trimethobenzamide HCl 200 mg 10/25/24 15:34 Trimethobenzamide Hcl 200 Mg/2 Ml Vial IM Q6H PRN Nausea And Vomiting Radiology Results: ITS Impressions Abdomen/Pelvis CT 10/25/24 10:21 Impression: Extensive wall thickening of the mid to distal ileum, compatible with infectious/inflammatory enteritis. Status post colectomy with right lower quadrant ileostomy. Labs Labs: Laboratory Results - last 24 hr 10/28/24 04:52 WBC 7.9 RBC 4.66 Hgb 14.2 Hct 41.0 L MCV 88.0 MCH 30.5 MCHC 34.6 RDW 12.4 Plt Count 317 MPV 8.3 Immature Gran % (Auto) 0.5 Neut % (Auto) 36.5 L Lymph % (Auto) 49.[address] [place] % (Auto) 8.9 H Eos % (Auto) 3.6 Baso % (Auto) 1.1 Lymph # (Auto) 3.[address] [place] # (Auto) 0.7 H Eos # (Auto) 0.3 Baso # (Auto) 0.1 Abs Immat Gran (auto) 0.04 H Absolute Neuts (auto) 2.9 Absolute Nucleated RBC 0.000 Nucleated RBC % 0.0 Sodium 139 Potassium 3.9 Chloride 105 Carbon Dioxide 29 Anion Gap 5 BUN 8 L Creatinine 1.02 Estim Creat Clear Calc 90 Estimated GFR > 60 Glucose 95 Calcium 8.2 L Total Bilirubin 0.4 AST 67 H ALT 126 H Alkaline Phosphatase 43 Total Protein 6.0 L Albumin 3.5
--- NOTE | 2024-10-28 13:45 | PM.DS ---
DS: Admitting Diagnosis Discharge Date 10/28/24 Admitting Diagnosis Abdominal pain. Pain at ostomy site. 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 In the ED has leukocytosis at 13.8, AST of 64, ALT of 136, lipase of 967, urine bilirubin of 1+. CT of the abdomen shows Extensive wall thickening of the mid to distal ileum, compatible with infectious/inflammatory enteritis. With a normal pancreas. ED he was started on antibiotics, IV fluids and pain management. GI consulted. Ileoscopy completed- The terminal ileum was examined and was normal. Scoped was inserted through the ileostomy and advanced about 25 cm, no signs of ileitis, no active inflammation, no erosions, no ulcers, no stricture, no signs of active IBD. Multiple biopsies were obtained. Possible infections enteritis, continue with abx. Abdominal pain improved. WBC 7.9. Lipase 96. Blood cultures no growth to date. Patient transitioned to oral antibiotics and to follow up [facility] Dr[facility] Hernandez at [place]. Status at Discharge Functional status at discharge: independent ambulation Overall status at discharge: patient is progressing back to baseline Time Spent with Patient Time attestation: Total time spent providing and/or coordinating discharge services: Time spent: Greater than 30 minutes Exam Const: General: no acute distress and uncomfortable Other: Pain in abdomen a 3 . Resp: Effort & Inspection: normal respiratory effort Auscultation: clear to auscultation bilaterally Cardio: Rate: regular rate Rhythm: regular rhythm GI: GI Palp: Yes Soft to palpation Auscultation: normal bowel sounds Extrem: General: no pedal edema Psych: Mental Status: mental status grossly normal Affect: normal affect DS: Data Data Completed and Pending Completed studies during hospitalization: Pending at discharge 10/26/24 15:26 Surgical [PTH] Routine Labs on day of discharge: Labs from last 24 hours 10/28/24 04:52 WBC 7.9 RBC 4.66 Hgb 14.2 Hct 41.0 L MCV 88.0 MCH 30.5 MCHC 34.6 RDW 12.4 Plt Count 317 MPV 8.3 Immature Gran % (Auto) 0.5 Neut % (Auto) 36.5 L Lymph % (Auto) 49.4 H [place] % (Auto) 8.9 H Eos % (Auto) 3.6 Baso % (Auto) 1.1 Lymph # (Auto) 3.88 H Pitt # (Auto) 0.7 H Eos # (Auto) 0.3 Baso # (Auto) 0.1 Abs Immat Gran (auto) 0.04 H Absolute Neuts (auto) 2.9 Absolute Nucleated RBC 0.000 Nucleated RBC % 0.0 Sodium 139 Potassium 3.9 Chloride 105 Carbon Dioxide 29 Anion Gap 5 BUN 8 L Creatinine 1.02 Estim Creat Clear Calc 90 Estimated GFR > 60 Glucose 95 Calcium 8.2 L Total Bilirubin 0.4 AST 67 H ALT 126 H Alkaline Phosphatase 43 Total Protein 6.0 L Albumin 3.5 Preliminary micro results at discharge 10/25/24 14:58 Blood Culture - Preliminary Blood 10/25/24 14:58 Blood Culture - Preliminary Blood Discharge Plan Discharge Attending physician on discharge: Олег Leonard Consulting providers: Fransisco Gibson Discharging Clinician: Madhuri Machado Anticipated Discharge Date/Time: 10/28/24 14:00 Patient Disposition: Home Activity: may shower and as tolerated Diet: low fiber Discharge Instructions: Complete all doses of antibiotics. Follow up with your [facility] Hernandez at [place]. Call provider if you develop worsening abdominal pain, ostomy is not draining well, fever >101, nausea, or vomiting. Thank you for entrusting [facility] with your healthcare! Patient Instructions: Antibiotic Form, Low Fiber Diet (DC), Enteritis (DC) Patient Language: Singaporean Stand Alone Forms: General Discharge Information Follow-up/Referrals: Suhas Bustillos MD [Primary Care Provider] - 1 Week Discharge Medications: New ciprofloxacin HCl [Cipro] 500 mg tablet 500 mg PO Q12H Qty: 7 0RF metronidazole 500 mg tablet 500 mg PO Q8H Qty: 9 0RF Date of admission: 10/27/24 16:11 Primary Care Provider: Suhas Bustillos Admitting Provider: Maxi Alfaro Attending physician on admission: Maxi Alfaro Condition: Stable Hospitalist MIPS Heart Failure (Exclusion) Patient has history of Heart Transplant or Left Ventricular Assistive Device?: No IF YES, STOP HERE Heart Failure (Qualifier) Patient has current or prior documentation of LVEF less than or equal to 40%, or mod/servere depressed LVSF?: No IF NO, STOP HERE
--- NOTE | 2024-10-28 17:13 | WPDGIPROGNO ---
Progress Note: A&P Assessment and Plan (1) Enteritis: Code(s): K52.9 - Noninfective gastroenteritis and colitis, unspecified Status: Acute Assessment and Plan: pain almost gone and he is going home today complete 3 more days of abx ileostomy output is back to his baseline no major findings yesterday with ileoscopy he can follow-up with his GI doctor (2) Ileostomy in place: Code(s): Z93.2 - Ileostomy status Status: Chronic (3) Generalized abdominal pain: Code(s): R10.84 - Generalized abdominal pain Status: Acute (4) Ulcerative colitis: Code(s): K51.90 - Ulcerative colitis, unspecified, without complications Status: Acute Subjective Date/time seen: 10/28/24 11:13 Interval history: pain is almost gone and he is going [place] Review of Systems Review of Systems: All systems reviewed & are unremarkable except as noted in HPI and below Exam Const: General: no acute distress and uncomfortable HENMT: Face/Nose/Sinus: Normal nares present Eyes: Sclera: sclerae normal Neck: Neck: supple Resp: Effort & Inspection: normal respiratory effort Auscultation: clear to auscultation bilaterally Cardio: Rate: regular rate Rhythm: regular rhythm GI: GI Palp: Yes Soft to palpation Auscultation: normal bowel sounds Other: less tender, no rebound ileostomy ok Skin: General skin exam: normal color Neuro: Speech: normal speech Extrem: General: normal to inspection and no pedal edema Psych: Mental Status: mental status grossly normal Affect: normal affect Objective Data Vital Signs Vital Signs: Vital Signs - 24 hr 10/27/24 20:38 10/28/24 05:36 10/28/24 08:00 Temperature 97.6 F 97.7 F Pulse Rate 61 68 Respiratory Rate 16 16 Blood Pressure 113/75 112/74 Pulse Oximetry 99 98 Oxygen Delivery Room Air Intake/Output Intake/Output: Intake & Output 10/25/24 10/26/24 10/27/24 10/28/24 23:59 23:59 23:59 23:59 Intake Total 1999 3890 2580 980 Balance 1999 3890 2580 980 Meds/Results Radiology Results: ITS Impressions Abdomen/Pelvis CT 10/25/24 10:21 Impression: Extensive wall thickening of the mid to distal ileum, compatible with infectious/inflammatory enteritis. Status post colectomy with right lower quadrant ileostomy. Labs Labs: Laboratory Results - last 24 hr 10/28/24 04:52 WBC 7.9 RBC 4.66 Hgb 14.2 Hct 41.0 L MCV 88.0 MCH 30.5 MCHC 34.6 RDW 12.4 Plt Count 317 MPV 8.3 Immature Gran % (Auto) 0.5 Neut % (Auto) 36.5 L Lymph % (Auto) 49.4 H [place] % (Auto) 8.9 H Eos % (Auto) 3.6 Baso % (Auto) 1.1 Lymph # (Auto) 3.88 H [place] # (Auto) 0.7 H Eos # (Auto) 0.3 Baso # (Auto) 0.1 Abs Immat Gran (auto) 0.04 H Absolute Neuts (auto) 2.9 Absolute Nucleated RBC 0.000 Nucleated RBC % 0.0 Sodium 139 Potassium 3.9 Chloride 105 Carbon Dioxide 29 Anion Gap 5 BUN 8 L Creatinine 1.02 Estim Creat Clear Calc 90 Estimated GFR > 60 Glucose 95 Calcium 8.2 L Total Bilirubin 0.4 AST 67 H ALT 126 H Alkaline Phosphatase 43 Total Protein 6.0 L Albumin 3.5
[2024-10-31 17:31] LABS: Calprotectin, Stool 122 mcg/g
== END 2024-10-28 14:50 | disposition home or self-care (01) | DRG 392 ==
LOC: ANHED 13:58 → ANH3MEDSUR 15:25
PROVIDERS: Emergency Medicine; Internal Medicine Gastroenterology; Nurse Practitioner; Nurse Practitioner Gerontology; Admitting Provider General Practice; Emergency Provider Nurse Practitioner Family; PCP Emergency Medicine; Visit Provider Nurse Practitioner Family
PROC: 0DJD8ZZ Inspection of Lower Intestinal Tract, Via Natural or Artificial Opening Endoscopic (ICD-10-PCS; CPT 45378; principal; 2024-10-26 16:30)
DX: A09 Infectious gastroenteritis and colitis, unspecified (principal); F41.9 Anxiety disorder, unspecified; R74.8 Abnormal levels of other serum enzymes; Z87.19 Personal history of other diseases of the digestive system; Z93.2 Ileostomy status; Z90.49 Acquired absence of other specified parts of digestive tract; Z86.16 Personal history of COVID-19
CPT/HCPCS: 36415; 74177; 80053; 81001; 83690; 83735; 83993; 85025; 87040; 87045; 87427; 87449; 87493; 88305; 96361; 96365; 96372; 96375; 96376; 99285; A9270; G0378; J0500; J0744; J1171; J1836; J1885; J2405; J2704; J2919; J7030; J7120; Q9967